=== PATIENT | male | born 1990 | race Caucasian/White ===

== ENCOUNTER 2019-07-06 15:36 | Emergency (ER) | payer MEDICARE, OTHER ==
[~2019-07-06] VITALS: Ht 188 cm; Wt 188.2 kg
[2019-07-06] MEDS ORDERED: VENTOLIN HFA18 GM INH (15:56)
[2019-07-06] MEDS ORDERED: OMEPRAZOLE20 MG PO (15:57)
[2019-07-06] MEDS ORDERED: NEURONTIN300 MG PO (15:57)
[2019-07-06] MEDS ORDERED: METOPROLOL SUCC25 MG PO (15:57)
[2019-07-06] MEDS ORDERED: BACTRIM DS TAB1 EACH PO (16:10)
--- OUTSIDE RECORDS SUMMARY | 2019-07-06 16:40 | XMS ---
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 - 2 Visits in 30 Days CARE PROVIDERS VANDANA MEJIA Physician Rn Baby Current PHONE: [phone] Donnie has no Care Guidelines for this patient. E.David VISIT COUNT (12 MO.) 2 Counts Include [facility] TOTAL 5 NOTE: Visits indicate total known visits. ED/UCC VISIT TRACKING (12 MO.) 07/06/2019 15:41 JANINE Kumar TYPE: Emergency COMPLAINT: - LT LEG WOUND CHECK UP 06/23/2019 18:51 [facility] [place] TYPE: Emergency DIAGNOSES: - Cellulitis of left lower limb - Phlebitis and thrombophlebitis of superficial vessels of left - POSS BLOOD CLOT 01/21/2019 17:43 [facility] TYPE: Emergency DIAGNOSES: - Nausea - Influenza due to other identified influenza virus with other - Bronchitis, not specified as acute or chronic - Tachycardia, unspecified - Diarrhea (Adult) - Fever (9 Weeks To 74 Years) - Cough - poss pneumonia - Emesis - Obesity, unspecified - Cough - Dyspnea, unspecified 12/23/2018 16:[facility] DIAGNOSES: - Sore Throat - Shortness of Breath - Acute bronchitis, unspecified - Cough - Fever (9 Weeks To 74 Years) - poss pneumonia 09/16/2018 13:33 [facility] [place] TYPE: Emergency DIAGNOSES: - Other chest pain - chest pain INPATIENT VISIT TRACKING (12 MO.) 01/21/2019 17:43 [facility] DIAGNOSES: - Bronchitis, not specified as acute or chronic - Cough - Influenza due to other identified influenza virus with other - Obesity, unspecified - Dyspnea, unspecified - Tachycardia, unspecified [email or web address]
== END 2019-07-06 16:17 | disposition home or self-care (01) ==
LOC: ED 15:36
DX: L03.116 Cellulitis of left lower limb (principal); Z79.899 Other long term (current) drug therapy
CPT/HCPCS: 99283

== ENCOUNTER 2019-10-20 21:11 | Emergency (ER) | payer MEDICARE, OTHER ==
[~2019-10-20] VITALS: Ht 188 cm; Wt 199.6 kg
--- OUTSIDE RECORDS SUMMARY | ~2019-10-20 | XMS | Encounter Summary ---
Demographics + + + | Address | [address] | | | [place] [address] | + + + | Home Phone | | + + + | Preferred Language | Unknown | + + + | Marital Status | Single | + + + | Anglican Affiliation | 1028 | + + + | Race | White | + + + | Ethnic Group | Not or | + + + Author + + + | Author | [facility] | | | and [place] | + + + | Organization | [facility] | | | and [place] | + + + | Address | Unknown | + + + | Phone | Unavailable | + + + Support + + +---------+ + | Name | Relationship | Address | Phone | + + +---------+ + | Audrey Zambrano | ECON | Unknown | | + + +---------+ + | nica Hicks | ECON | Unknown | | + + +---------+ + Care Team Providers + +------+ + | Care Conditioning Room Worker Name | Role | Phone | + +------+ + | No, Physician | PCP | Unavailable | + +------+ + Reason for Visit + + + | Reason | Comments | + + + | Nausea | | + + + | Emesis | | + + + | Diarrhea (Adult) | | + + + | Cough | | + + + | Fever (9 Weeks To 74 | | | Years) | | + + + Encounter Details +--------+ + + + + | Date | Type | Department | Care Team | Description | +--------+ + + + + | 01/21/ | Emergency | [facility] | Julian Melendez | Dyspnea, unspecified | | 2019 - | | [facility] | Javan Gamble MD | type (Primary Dx); | | | | [address] [place] | [address] | Cough; Influenza B; | | 01/23/ | | [place] [address] | [place], [place] | Tachycardia; | | 2019 | | [phone] | [id number] | Obesity, unspecified | | | | | | classification, | | | | | Darrick Robb MD | unspecified obesity | | | | | [address] | type, unspecified | | | | | [place] | whether serious | | | | | [id number] | comorbidity present; | | | | | | Bronchitis; Acute | | | | | | respiratory failure | | | | | | with hypoxia (HCC); | | | | | | Influenza B | +--------+ + + + + Social History + +-------+ +--------+------+ | Tobacco Use | Types | Packs/Day | Years | Date | | | | | Used | | + +-------+ +--------+------+ | Never Smoker | | | | | + +-------+ +--------+------+ + + +---------+ + | Alcohol Use | Drinks/Week | oz/Week | Comments | + + +---------+ + | Never | | | | + + +---------+ + + + + + | Alcohol Habits | Answer | Date Recorded | + + + + | How often do you have a drink containing | Never | 12/23/2018 | | alcohol? | | | + + + + | How many drinks containing alcohol do you | Not asked | | | have on a typical day when you are | | | | drinking? | | | + + + + | How often do you have six or more drinks on | Not asked | | | one occasion? | | | + + + + + + + | Sex Assigned at | Date Recorded | | | | + + + | Not on file | | + + + documented as of this encounter Last Filed Vital Signs + + + + + | Vital Sign | Reading | Time Taken | Comments | + + + + + | Blood Pressure | 143/90 | 01/23/2019 7:34 AM | | | | | PST | | + + + + + | Pulse | 97 | 01/23/2019 9:07 AM | | | | | PST | | + + + + + | Temperature | 37.4 C (99.3 F) | 01/23/2019 7:34 AM | | | | | PST | | + + + + + | Respiratory Rate | 18 | 01/23/2019 12:14 PM | | | | | PST | | + + + + + | Oxygen Saturation | 94% | 01/23/2019 9:07 AM | | | | | PST | | + + + + + | Inhaled Oxygen | - | - | | | Concentration | | | | + + + + + | Weight | 202.4 kg (446 lb 3.4 | 01/22/2019 1:17 AM | | | | oz) | PST | | + + + + + | Height | 190.5 cm (6' 3") | 01/22/2019 1:17 AM | | | | | PST | | + + + + + | Body Mass Index | 55.77 | 01/22/2019 1:17 AM | | | | | PST | | + + + + + documented in this encounter Discharge Summaries Newton Matute DO - 01/23/2019 2:42 PM PST [place], [place] HOSPITALIST DISCHARGE SUMMARY Pt. Name/Age/: Jean-Pierre Zambrano 28 y.o. 1990 Date of Admission: 01/21/2019 Date of Discharge: 01/23/2019 Admitting Physician: Darrick Robb MD Primary Care Provider: No Physician on file Discharging Physician: Newton Matute DO DISCHARGE DIAGNOSES: Active Hospital Problems Diagnosis Acute respiratory failure with hypoxia Bronchitis Influenza B Resolved Hospital Problems No resolved problems to display. DISCHARGE MEDICATIONS: Discharge Medications New Medications Details oseltamivir 75 mg capsule Take 1 capsule by mouth 2 times daily for 6 doses. Indications: Flu aka: TAMIFLU Unchanged Medications Details albuterol 90 mcg/puff inhaler Inhale 2 puffs into the lungs every 4 hours as needed for Wheezing or Shortness of Breath. Use with spacer device. gabapentin 300 mg capsule Take 300 mg by mouth Daily. aka: NEURONTIN metoprolol succinate 25 mg 24 hr tablet Take 25 mg by mouth Daily. aka: TOPROL-XL omeprazole 20 mg capsule Take 20 mg by mouth every morning (before breakfast). aka: priLOSEC tocopherol topical oil Apply 1 Application topically Daily as needed for Dry Skin. Discontinued Medications methylPREDNISolone 4 mg tablet aka: MEDROL DOSEPAK warfarin 5 mg tablet aka: COUMADIN HOSPITAL COURSE: Please refer to the H&P for full details and the most recent rounding rounding (progress) n ote. In short This is a28 y.o.malepast medical history significant for thromboembolic disease, hype rtensionwho presents withcough. Patient states he has had the symptoms for the last 3 weeks. He is admitted for influenza. He was started on tamiflu and supportive therapy. His s ymptoms gradually improved. He was weaned off oxygen quickly He is stable for discharge. In regards to his hx of DVTs. He have been on warfarin for more than a year. Mother is unclear of the trigger. She stated that they wanted him to be on warfarin for a couple of years than stopped. She does not remember him being diagnosed with a hypercoagulable disorder. His war farin was managed by their doctor in [place], but they have moved to [place]. No one is checkin g his INR. His INR is subtherapeutic. I discussed the risk of warfarin and the lack of INR m onitoring. The risk outweigh the benefit given their situation. Also given the unclear circu mstance of the DVT, I discussed the risk and benefit of continuing anticoagulation. Mother e xpressed understanding and agreeable to stopping anticoagulation. I advised her to get him a PCP and follow up on this as outpatient. Holding anticoagulation for now. Finish tamiflu as directed. Most recent weight: Input and output for last 24hrs: Wt Readings from Last 1 Encounters: 01/22/19 (!) 202.4 kg (446 lb 3.4 oz) I/O last 24 Hours: In: 1470 [P.O.:1470] Out: 1775 [Urine:1775] Vitals Ranges: Temp: [36.8 C (98.2 F)-37.8 C (100 F)] 37.4 C (99.3 F) Pulse: [95-104] 97 Resp: [18-24] 18 BP: (93-143)/(61-90) 143/90 Vitals: Temp: 37.4 C (99.3 F) BP: 143/90 Pulse: 97 Resp: 18 SpO2: 94 % SpO2 94 % on room air at flow rate 2L/min PHYSICAL EXAM: Patient seen and examined by me on discharge day GA: NAD, AAOX3, overweight Cardiac: heart rate is fast and rhythm is regular, no m/g/r, 2+ bilateral LE swelling Lung: decreased throughout, some wheezing, normal respiratory effort Abdomen: soft, nt/nd, nabs Ext:no c/c/e Pych: normal mood and affect Neuro: materials supervisor grossly intact, no focal weakness or sensory deficits PROCEDURES AND CONSULTS: Procedures none Consults none PENDING RESULTS: none DISPOSITION AND DISCHARGE INSTRUCTIONS: Follow-up Information [facility]. Go on 01/22/2019. Specialty: Physician Community Outreach Worker Why: New patient appointment @ 1:30 pm. Please check in at 1:15pm. Contact information: [address] [place] [id number] Condition: Patient being discharged with condition improved Diet: general Greater than 30 minutes were spent on discharge and coordination of post-hospital care. Electronically signed by: Newton Matute DO, 01/23/2019 2:42 PM [facility] Portions of this chart may have been created with P[employer] voice recognition software. Occasi onal wrong-word or sound-alike substitutions may have occurred due to the inherent penny itations of voice recognition software. Please read the chart carefully and recognize, using context, where these substitutions have occurred documented in this enco unter Discharge Instructions Instructions Newton Matute DO - 01/23/2019Please follow up your doctor regarding blood thi nning and see if he has a blood disorder that require him to be on life long blood thinners Hold warfarin for now Finish the Tamiflu Influenza (Adult) Influenza is also called the flu. It is a viral illness that affects the air passages of yo ur lungs. It is different from the common cold. The flu can easily be passed from one to per son to another. It may be spread through the air by coughing and sneezing. Or it can be spre ad by touching the sick person and then touching your own eyes, nose, or mouth. The flu starts 1 to 3 days after you are exposed to the flu virus. It may lastfor 1 to 2 weeks but many people feel tired or fatigued for many weeks afterward. You usually don t n eed to take antibiotics unless you have a complication. This might be an ear or sinus infect ion or pneumonia. Symptoms of the flu may be mild or severe. They can include extreme tiredness (wanting to s james in bed all day), chills, fevers, muscle aches, soreness with eye movement, headache, and a dry, hacking cough. Home care Follow these guidelines when caring for yourself at home: Avoid being around cigarette smoke, whether yours or other people s. Acetaminophen or ibuprofen will help ease your fever, muscle aches, and headache. Don t give aspirin to anyone younger than 18 who has the flu. Aspirin can harm the liver. Nausea and loss of appetite are common with the flu. Eat light meals. Drink 6 to 8 glass es of liquids every day. Good choices are water, sport drinks, soft drinks without caffeine, juices, tea, and soup. Extra fluids will also help loosen secretions in your nose and lungs . Jstd-jsk-hentzxs cold medicines will not make the flu go away faster. But the medicines may help with coughing, sore throat, and congestion in your nose and sinuses. Don t use a decongestant if you have high blood pressure. Stay home until your fever has been gone for at least 24 hours without using medicine to reduce fever. Follow-up care Follow up with your healthcare provider, or as advised, if you are not getting better over the next week. If you are age 65 or older, talk with your provider about getting a pneumococcal vaccine ev manjit 5 years. You should also get this vaccine if you have chronic asthma or COPD. All adults should get a flu vaccine every fall. Ask your provider about this. When to seek medical advice Call your healthcare provider right away if any of these occur: Cough with lots of colored mucus (sputum) or blood in your mucus Chest pain, shortness of breath, wheezing, or trouble breathing Severe headache, or face, neck, or ear pain New rashwith fever Fever of 100.4F (38C)or higher, or asdirected by your healthcare provider Confusion, behavior change, or seizure Severe weakness or dizziness You get a newfever or cough after getting better for a few days Date Last Reviewed: 03/04/201619994158-3510 [email or web address]. [address] [place] [address], [place] [address]. All righ ts reserved. This information is not intended as a substitute for professional medical care. Always follow your healthcare professional's instructions. documented in this encounter Medications at Time of Discharge + + + +---------+ + + | Medication | Sig | Dispensed | Refills | Start | End Date | | | | | | Date | | + + + +---------+ + + | albuterol 90 | Inhale 2 puffs into | 1 | 0 | 12/24/19 | | | mcg/puff inhaler | the lungs every 4 | Inhaler | | 19 | | | | hours as needed for | | | | | | | Wheezing or | | | | | | | Shortness of Breath. | | | | | | | Use with spacer | | | | | | | device. | | | | | + + + +---------+ + + | gabapentin | Take 300 mg by mouth | | 0 | | | | (NEURONTIN) 300 mg | Daily. | | | | | | capsule | | | | | | + + + +---------+ + + | metoprolol | Take 25 mg by mouth | | 0 | | | | succinate | Daily. | | | | | | (TOPROL-XL) 25 mg 24 | | | | | | | hr tablet | | | | | | + + + +---------+ + + | omeprazole | Take 20 mg by mouth | | 0 | | | | (PRILOSEC) 20 mg | every morning | | | | | | capsule | (before breakfast). | | | | | + + + +---------+ + + | tocopherol | Apply 1 Application | | 0 | | | | (VITAMIN E) topical | topically Daily as | | | | | | oil | needed for Dry Skin. | | | | | + + + +---------+ + + | oseltamivir | Take 1 capsule by | 6 | 0 | 01/24/20 | | | (TAMIFLU) 75 mg | mouth 2 times daily | capsule | | 19 | 9 | | capsuleIndications: | for 6 doses. | | | | | | Influenza | Indications: Flu | | | | | + + + +---------+ + + documented as of this encounter Progress Notes Jazmyne Betancourt, PharmD - 01/23/2019 7:47 AM PST WARFARIN PER PHARMACY PROTOCOL: Subjective/Objective: Jean-Pierre Zambrano is a 28 y.o. male admitted on 01/21/2019 for influenza and Bronchitis an d is receiving warfarin. Patient has a past medical history of DVT (deep venous thrombosis) (HCC). Goal INR: 2-3 []Initiation [x]chronic Home regimen: Warfarin 10mg po daily on Mondays and 7.5mg daily on all other days per ghulam nt Managed by: Nazario Monterroso in [place]?? Sensitizers:acutely ill Drug Interactions: OSELTAMIVIR; pantoprazole Recent Labs Lab 01/23/19 0533 01/22/19 0601 01/22/19 0515 01/21/19 1914 01/21/19 1834 CREA -- -- 1.01 -- 1.12 HGB -- -- 13.0* -- 13.8 HCT -- -- 42.2 -- 44.2 PLT -- -- 194 -- 226 INR 1.3* 1.1 -- 1.2* -- Date Hgb Hct Platelets INR Warfarin Dose 01/21 13.8 44.2 226 1.2 10 mg 01/22 13.0 42.2 194 1.1 10 mg 01/23 - - - 1.3 Assessment: The INR is below the target range of 2-3 for DVT and thromboembolic disease and history of DVT Pt reports NOT having 01/21 dose of Warfarin and not sure if he took 01/20 dose, but parker s remember taking 10mg dose on 01/19 He reports that he has not been able to go get his INR's checked in [place] d/t [place] ity to afford gas money Warfarin compliance is an issue Plan: 1. Warfarin 10mg po daily 2. Medication profile reviewed for potential drug-drug interactions 3. Labs in am: INR 4. Warfarin education received NO. 5. Pharmacist to follow daily Warfarin Dosing Nomogram Per P&T-approved Electronically signed by: Jazmyne Betancourt, PharmD 01/23/2019 7:47 AM Ellis Cazares, Ph armD - 01/22/2019 6:10 PM PST PHARMACY SERVICES: ADMISSION MEDICATION REVIEW Jean-Pierre Zambrano is a 28 y.o. male admitted on 01/21/2019. Patient is not a reliable historian. Location of Patient when reviewed: MEDICAL FLOOR Patient s prior to admit medication and over the counter (OTC) medications/herbal supplem ents list obtained from: X Verbal interview: Patient ABLE TO RECALL MOST name, strength, and directions X Doctor's office: Dr. Monterroso ([place]) Dr. Monzon ([facility]) X Pharmacy list names: [facility] X [employer] insurance reported information X Care Everywhere X Outside Information X Other sources: Attempted to contact patients Mother, Audrey. Vaccines up to date? 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 Patient DOES NOT have a MD following him and takes this how his mother feels fit. Medication added: Medication: Prior to Admission Sig: Vitamin E oil 1 application topically daily as needed for dry skin Recreational Substances, Tobacco & Alcohol use/frequency: X Recreational substances: Patient states his mother and uncle smoke marijuana and he is f requently exposed to the smoke. Other: Dr. Monterroso originally prescribed his warfarin. However, Dr. Monterroso is no longer following him. (Doctor in [place]) Dr. Monterroso's nurse states patient was impossible to reach because he didn't have a phone an d he would no show to appointment all the time due to not having gas. They would send him letters requesting for patient to contact the office and with instru ctions for dose adjustments. However, he would never follow up. He would randomly call/show up to the office wanting them to adjust his INR and give him "advice" without an appointment/labs. Last office visit was: Nov 2017 Last INR was drawn 04/26/18 when he randomly showed up. He never followed up for them to adjust his warfarin dosing. This all made it to where Dr. Monterroso is unable to manage his care. Patient states he has a "blood doctor" in [place], [place]. Unable to figure out who he is talking about. He does not know the doctors name. Patient states he was told by his "blood doctor" he could not go to any other doctors fo r his INR. Patient states he has not gotten his INR drawn because he does not have gas money to tra niki to the doctor. PCP is Kristen Monzon MD at [facility] She does NOT manage his warfarin. Patient gave [facility] PharmD his mothers phone number and requested we contact her for furthe r history. When [employer] attempted to contact his mother, Audrey, it went to the voicemail of gill carreno named Darby. When asked about this the patient states "she is a very bad person". Apparently someone his family knows. Patient states his memory is "screwed". Patient states he "occasionally" takes Hydrocodone-acetaminophen 5-325 mg tabs He told Med true[x] Media a long story about how he has a prescription for this. However, when his doctor drug tested him he didn't have any of this in his system which lead them to noe ch he was selling it. Therefore he was no longer given prescriptions for this. No fill history found at pharmacy nor in [place] drug monitoring [place] . 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 Provider albuterol 90 mcg/puff inhaler Inhale 2 puffs into the lungs every 4 hours as needed for Wh eezing or Shortness of Breath. Use with spacer device. Taking 1 Inhaler Gennaro Abdul MD gabapentin (NEURONTIN) 300 mg capsule Take 300 mg by mouth Daily. Taking Historical Susana jaquez MD methylPREDNISolone (MEDROL DOSEPAK) 4 mg tablet Follow package directions. Patient not aleta ing: Reported on 01/22/2019 Not Taking 21 tablet Gennaro Abdul MD metoprolol succinate (TOPROL-XL) 25 mg 24 hr tablet Take 25 mg by mouth Daily. Taking His torical Provider, omeprazole (PRILOSEC) 20 mg capsule Take 20 mg by mouth every morning (before breakfast). Taking Historical ProviderMD tocopherol (VITAMIN E) topical oil Apply 1 Application topically Daily as needed for Dry S kin. Taking Historical ProviderMD warfarin (COUMADIN) 5 mg tablet Take 5-10 mg by mouth Daily. or as directed Taking Histor ical MD Luis Medication review performed and electronically signed by Audrey Haynes, Technical Staff Engineer 01/22 5:23 PM Ellis Huang PharmD 01/22/2019 6:09 PM Jazmyne Cameron, Ph armD - 01/22/2019 8:52 AM PST WARFARIN PER PHARMACY PROTOCOL: Subjective/Objective: Jean-Pierre Zambrano is a 28 y.o. male admitted on 01/21/2019 for influenza and Bronchitis an d is receiving warfarin. Patient has a past medical history of DVT (deep venous thrombosis) (HCC). Goal INR: 2-3 []Initiation [x]chronic Home regimen: Warfarin 10mg po daily on Mondays and 7.5mg daily on all other days per patie nt Managed by: Nazario Monterroso in [place]?? Sensitizers:acutely ill Drug Interactions: OSELTAMIVIR; pantoprazole Recent Labs Lab 01/22/19 0601 01/22/19 0515 01/21/19 1914 01/21/19 1834 CREA -- 1.01 -- 1.12 HGB -- 13.0* -- 13.8 HCT -- 42.2 -- 44.2 PLT -- 194 -- 226 INR 1.1 -- 1.2* -- Date Hgb Hct Platelets INR Warfarin Dose 01/21 13.8 44.2 226 1.2 10 mg 01/22 13.0 42.2 194 1.1 10 mg Assessment: The INR is below the target range of 2-3 for DVT and thromboembolic disease and history of DVT Pt reports NOT having 01/21 dose of Warfarin and not sure if he took 01/20 dose, but parker s remember taking 10mg dose on 01/19 He reports that he has not been able to go get his INR's checked in [place] d/t in[place] ity to afford gas money Warfarin compliance is an issue Plan: 1. Warfarin 10mg po x 1 dose 2. AM clinical pharmacist to assess AM labs and order maintenance dosing 3. Medication profile reviewed for potential drug-drug interactions 4. Labs in am: INR 5. Warfarin education received NO. 6. Pharmacist to follow daily Warfarin Dosing Nomogram Per P&T-approved Electronically signed by: Jazmyne Betancourt PharmD 01/22/2019 8:52 AM Newton Thrasher DO - 01/22/2019 7:28 AM PST [facility] [place] HOSPITALIST PROGRESS NOTE Patient: Jean-Pierre Zambrano : 1990: Age: 28 y.o. MedRec: [id number] Admission date: 01/21/2019 Hospital day # : 1 Physician author: Newton Matute DO Today: 01/22/2019 Subjective CC Breathing is improve. SOB is associated with chill, cough and some wheezing. Body aches all over but worst when he cough. He denied chest pain. ROS See above Overnight Event: none Assessment and Hospital Course Active Hospital Problems Diagnosis Bronchitis Influenza B Resolved Hospital Problems No resolved problems to display. This is a 28 y.o. male past medical history significant for thromboembolic disease, hyperte nsion who presents with cough. Patient states he has had the symptoms for the last 3 weeks. He is admitted for influenza. Plan # Acute respiratory failure with hypoxia due to influenza B Stable. + Influenza B. - cont Tamiflu - stop IV fluids. # Thromboembolic disease INR below goal - continue Coumadin. - warfarin per pharm - heparin for DVT ppx for now # Hypertension essential chronic BP soft on presentation. BP improving. - cont hold Lopressor # Obesity with BMi 55 - noted - diet DVT ppx: Warfarin, but not therapeutic at this time. Heparin for now Dispo: home in 1-2 days Allergies: No Known Allergies Current Medications: Current Facility-Administered Medications Medication Dose Route Frequency Provider Last Rate Last Dose acetaminophen (TYLENOL) tablet 650 mg 650 mg Oral Q4H PRN Darrick Robb MD albuterol 2.5 mg/3 mL nebulizer solution 2.5 mg 2.5 mg Nebulization RT Q4H PRN Darrick Robb MD benzonatate (TESSALON) capsule 200 mg 200 mg Oral TID PRN Darrick Robb MD 200 mg a t 01/22/19 0628 gabapentin (NEURONTIN) capsule 300 mg 300 mg Oral Nightly Darrick Robb MD guaiFENesin (ROBITUSSIN) 100 mg/5 mL liquid 200 mg 200 mg Oral Q4H PRN Darrick Robb MD 200 mg at 01/22/19 0444 ondansetron (ZOFRAN) injection 4 mg 4 mg Intravenous Q6H PRN Darrick Robb MD oseltamivir (TAMIFLU) capsule 75 mg 75 mg Oral BID Darrick Robb MD 75 mg at 2305 pantoprazole (PROTONIX) DR tablet 40 mg 40 mg Oral QAM AC Darrick Robb MD 40 mg at 01/22/19 0622 sodium chloride 0.9% (NS) bolus 1,000 mL 1,000 mL Intravenous Once Julian Melendez MD 1,000 mL/hr at 01/21/19 2144 warfarin per pharmacy Other Pharmacy Consult Darrick Robb MD Current Infusions: Objective Data Point of care glucose No results for input(s): POCGLU in the last 168 hours. Labs last 24 hours Recent Results (from the past 24 hour(s)) Influenza A and B RNA, NAAT Collection Time: 01/21/19 6:08 PM Result Value Ref Range Influenza A PCR Negative Negative, Test not performed Influenza B PCR Positive (A) Negative, Test not performed CBC with Differential Collection Time: 01/21/19 6:34 PM Result Value Ref Range WBC 10.1 4.0 - 11.0 K/uL RBC 5.55 4.30 - 5.70 M/uL Hemoglobin 13.8 13.5 - 18.0 g/dL Hematocrit 44.2 40.0 - 51.0 % MCV 79.6 (L) 83.0 - 101.0 fL MCH 24.9 (L) 28.0 - 35.0 pg MCHC 31.2 (L) 32.0 - 36.0 g/dL RDW-CV 15.9 (H) <15.0 % RDW-SD 45.4 35.1 - 46.3 fL Platelet Count 226 140 - 440 K/uL MPV 9.3 6.5 - 12.4 fL % Neutrophils 74.3 45.0 - 82.0 % % Lymphocytes 0.5 (L) 20.0 - 45.0 % % Monocytes 23.0 (H) 4.0 - 12.0 % % Eosinophils 1.3 0.0 - 5.0 % % Basophils 0.4 0.0 - 1.0 % % Immature Granulocytes 0.5 (H) 0.0 - 0.4 % Absolute Neutrophils 7.51 1.80 - 8.50 K/uL Absolute Lymphocytes 0.05 (L) 0.60 - 3.20 K/uL Absolute Monocytes 2.33 (H) 0.00 - 1.00 K/uL Absolute Eosinophils 0.13 0.00 - 0.40 K/uL Absolute Basophils 0.04 0.00 - 0.10 K/uL Absolute Immature Granulocytes 0.05 (H) 0.00 - 0.03 K/uL % nRBC 0 0 - 2 per 100 WBCs Absolute nRBC 0.00 0.00 - 0.01 K/uL Comprehensive Metabolic Panel Collection Time: 01/21/19 6:34 PM Result Value Ref Range Na 134 (L) 136 - 145 mmol/L K 3.9 3.4 - 5.1 mmol/L Cl 99 98 - 107 mmol/L CO2 27 20 - 31 mmol/L Anion Gap 8 3 - 16 mmol/L Glucose 108 (H) 60 - 106 mg/dL BUN 11 9 - 23 mg/dL Creatinine 1.12 0.70 - 1.30 mg/dL eGFR if not >60 >=60 mL/min/1.73m2 Calcium 9.5 8.7 - 10.4 mg/dL Albumin 4.6 3.2 - 4.8 g/dL Bilirubin Total 0.9 0.3 - 1.2 mg/dL Total Protein 7.7 5.7 - 8.2 g/dL AST 54 (H) 0 - 34 U/L ALT 55 (H) 10 - 49 U/L Alkaline Phosphatase 70 46 - 116 U/L Globulin 3.1 2.1 - 3.8 g/dL Albumin/Globulin Ratio 1.5 0.8 - 1.9 BUN/Creatinine Ratio 9.8 Lipase Collection Time: 01/21/19 6:34 PM Result Value Ref Range Lipase 29 12 - 53 U/L Troponin I Collection Time: 01/21/19 6:34 PM Result Value Ref Range Troponin I 0.03 <0.06 ng/mL Lactic Acid Collection Time: 01/21/19 6:34 PM Result Value Ref Range Lactate 1.2 0.5 - 2.2 mmol/L Procalcitonin Collection Time: 01/21/19 6:34 PM Result Value Ref Range Procalcitonin 0.25 <=0.50 ng/mL Comment TSH Collection Time: 01/21/19 6:34 PM Result Value Ref Range TSH 0.80 0.55 - 4.78 uIU/mL B Type Natriuretic Peptide Collection Time: 01/21/19 6:34 PM Result Value Ref Range BNP 8 <100 pg/mL Protime INR Collection Time: 01/21/19 7:14 PM Result Value Ref Range Prothrombin Time 14.7 (H) 11.3 - 13.9 seconds INR 1.2 (H) 0.9 - 1.1 ECG 12 lead Collection Time: 01/21/19 8:08 PM Result Value Ref Range VENTRICULAR RATE EKG 114 BPM ATRIAL RATE 114 BPM P-R INTERVAL 172 ms QRS DURATION 80 ms Q-T INTERVAL 310 ms Q-T INTERVAL (CORRECTED) 427 ms P WAVE AXIS 40 degrees QRS AXIS 47 degrees T AXIS 56 degrees INTERPRETATION TEXT Sinus tachycardia Low voltage QRS Cannot rule out Inferior infarct , age undetermined Abnormal ECG No previous ECGs available Confirmed by KHADRA ALICIA MD ([id number]) on 01/22/2019 6:44:36 AM Basic Metabolic Panel Collection Time: 01/22/19 5:15 AM Result Value Ref Range Na 137 136 - 145 mmol/L K 3.8 3.4 - 5.1 mmol/L Cl 101 98 - 107 mmol/L CO2 29 20 - 31 mmol/L Anion Gap 7 3 - 16 mmol/L Glucose 110 (H) 60 - 106 mg/dL BUN 12 9 - 23 mg/dL Creatinine 1.01 0.70 - 1.30 mg/dL eGFR if not >60 >=60 mL/min/1.73m2 Calcium 9.1 8.7 - 10.4 mg/dL BUN/Creatinine Ratio 11.9 CBC no Differential Collection Time: 01/22/19 5:15 AM Result Value Ref Range WBC 7.7 4.0 - 11.0 K/uL RBC 5.19 4.30 - 5.70 M/uL Hemoglobin 13.0 (L) 13.5 - 18.0 g/dL Hematocrit 42.2 40.0 - 51.0 % MCV 81.3 (L) 83.0 - 101.0 fL MCH 25.0 (L) 28.0 - 35.0 pg MCHC 30.8 (L) 32.0 - 36.0 g/dL RDW-CV 16.1 (H) <15.0 % RDW-SD 48.3 (H) 35.1 - 46.3 fL Platelet Count 194 140 - 440 K/uL MPV 9.2 6.5 - 12.4 fL % nRBC 0 0 - 2 per 100 WBCs Absolute nRBC 0.00 0.00 - 0.01 K/uL Protime INR Collection Time: 01/22/19 6:01 AM Result Value Ref Range Prothrombin Time 14.6 (H) 11.3 - 13.9 seconds INR 1.1 0.9 - 1.1 Micro results Microbiology Results (72 hrs) Procedure Component Value Units Date/Time Influenza A and B RNA, NAAT [[id number]] (Abnormal) Collected: 01/21/19 7698 Order Status: Completed Lab Status: Final result Updated: 01/21/19 3820 Specimen: Tissue from Nares, Right Influenza A PCR Negative Influenza B PCR Positive Radiology results Xr Chest Ap Portable Result Date: 01/21/2019 XR CHEST AP PORTABLE 01/21/2019 6:55 PM HISTORY: NAUSEA EMESIS DIARRHEA (ADULT) COUGH FEVER (9 WEEKS TO 74 YEARS). COMPARISON: 12/23/2018 Findings: Hypoexpanded lungs with minimal bro nchovascular crowding. No evidence of pneumothorax, pleural effusion, or focal consolidation . Heart size is within normal limits. Pulmonary vasculature is within normal limits. Aorta i s normal. Mediastinum is unremarkable. No acute osseous or soft tissue abnormality identifie d. Hypoexpanded lungs with minimal bronchovascular crowding. No evidence of pneumothorax, pleu ral effusion, or focal consolidation. Dictated and Signed by: MD Jose Blum lly signed: 01/21/2019 8:[address] Angiogram Pulmonary W Contrast Result Date: 01/21/2019 CT ANGIOGRAM PULMONARY CLINICAL INFORMATION: Dyspnea, chest pain, and fever. COMPARISON: XR CHEST AP PORTABLE (01/21/2019); XR CHEST 2 VIEWS (12/23/2018); CT Angio Chest for PE (2015); PROCEDURE: Thin-section images of the entire chest after the administration of 70 ml Omnipaque 350 intravenous contrast. 3D MIP thin slab images and 2D multiplanar reconstructio ns performed. At least one of the following CT dose optimization techniques were used: Autom ated exposure control; Adjustment of mA and/or kV according to patient size; Use of iterativ e reconstruction technique. FINDINGS: See below. Report sent:01/21/2019 11:37:59 PM Preliminary report: Study of adequate diagnostic quality. Study negative for pulmonary emb olism or other acute process in the chest. Signed by: Jose Mojica Robin Sign Date/Time: 11:37 PM Vitals Ranges: Temp: [36.5 C (97.7 F)-40.3 C (104.6 F)] 36.5 C (97.7 F) Pulse: [97-140] 104 Resp: [15-30] 22 BP: (97-170)/(60-79) 126/71 Vitals: Temp: 36.5 C (97.7 F) BP: 126/71 Pulse: 104 Resp: 22 SpO2: 90 % SpO2 90 % on nasal cannula at flow rate 2L/min Exam GA: NAD, AAOX3, overweight HEENT: EOMI, MMM Neck: no JVD, no LDN Cardiac: heart rate is fast and rhythm is regular, no m/g/r, 2+ bilateral LE swelling Lung: decreased throughout, some wheezing, normal respiratory effort Abdomen: soft, nt/nd, nabs Ext:no c/c/e Pych: normal mood and affect 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 Portions of this chart may have been created with Pusher voice recognition software. Occasi onal wrong-word or sound-alike substitutions may have occurred due to the inherent penny itations of voice recognition software. Please read the chart carefully and recognize, using context, where these substitutions have occurred Charissa Lay Pha rmD - 01/22/2019 12:01 AM PST WARFARIN PER PHARMACY PROTOCOL: Subjective/Objective: Jean-Pierre Zambrano is a 28 y.o. male admitted on 01/21/2019 for influenza and Bronchitis an d is receiving warfarin. Patient has a past medical history of DVT (deep venous thrombosis) (HCC). Goal INR: 2-3 []Initiation [x]chronic Home regimen: Warfarin 10mg po daily on Mondays and 7.5mg daily on all other days per patie nt Managed by: Nazario Monterroso in [place]?? Sensitizers:acutely ill Drug Interactions: OSELTAMIVIR; pantoprazole Recent Labs Lab 01/21/19 1914 01/21/19 1834 CREA -- 1.12 HGB -- 13.8 HCT -- 44.2 PLT -- 226 INR 1.2* -- Date Hgb Hct Platelets INR Warfarin Dose 01/22 13.8 44.2 226 1.2 10 mg Assessment: The INR is below the target range of 2-3 for DVT and thromboembolic disease and history of DVT Pt reports NOT having 11/20 dose of Warfarin and not sure if he took 01/20 dose, but parker s remember taking 10mg dose on 01/19 He reports that he has not been able to go get his INR's checked in [place] d/t [facility] it[facility] to afford gas money Plan: 1. Warfarin 10mg po x 1 dose in ED 2. AM clinical pharmacist to assess AM labs and order maintenance dosing 3. Medication profile reviewed for potential drug-drug interactions 4. Labs in am: Hgb, Hct, INR 5. Warfarin education received NO. 6. Pharmacist to follow daily Warfarin Dosing Nomogram Per P&T-approved Electronically signed by: Charissa Sterling PharmD 01/22/2019 12:01 AM documented in this encounter H&P Notes Darrick Robb MD - 01/21/2019 11:59 PM PST [facility] HISTORY AND PHYSICAL Pt. Name/Age/: Jean-Pierre Zambrano 28 y.o. 1990 Date of admission: 01/21/2019 Admitting Physician: Darrick Robb MD Primary Care Provider: No Physician on file CHIEF COMPLAINT: Cough HISTORY OF PRESENT ILLNESS: This is a 28 y.o. male past medical history significant for thromboembolic disease, hyperte nsion who presents with cough. Patient states he has had the symptoms for the last 3 weeks. We initially had the symptoms he saw his primary care doctor and he was given a Z-Gerardo for bronchitis. Patient states the cough never improved. He notes muscle aches, runny nose, so re throat. Patient has not had any sick contacts. Patient states that he does not get his INR checked. He takes the same dose of Coumadin daily. He notes that he has had increased swelling in his left lower extremity. PAST MEDICAL and SURGICAL HISTORY: Past Medical History: Diagnosis Date DVT (deep venous thrombosis) (HCC) History reviewed. No pertinent surgical history. FAMILY HISTORY: Parents are alive and healthy SOCIAL HISTORY: reports that he has never smoked. He does not have any smokeless tobacco history on file. He reports that he does not drink alcohol or use drugs. 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 Use with spacer device. gabapentin (NEURONTIN) 300 mg capsule Take 300 mg by mouth 3 times daily. methylPREDNISolone (MEDROL DOSEPAK) 4 mg tablet Follow package directions. metoprolol tartrate (LOPRESSOR) 25 mg tablet Take 25 mg by mouth 2 times daily. omeprazole (PRILOSEC) 20 mg capsule Take 20 mg by mouth every morning (before breakfast ). warfarin (COUMADIN) 7.5 mg tablet Take 7.5 mg by mouth Daily. ALLERGIES: No Known Allergies VITAL SIGNS: Temp: (!) 40.3 C (104.6 F), Pulse: 104, Resp: 30, BP: 97/77, SpO2 (!) 85 % on nasal can nula at flow rate 2L/min Temp Min: 40.3 C (104.6 F) Max: 40.3 C (104.6 F) Weight: (!) 201 kg (443 lb 2 oz) PHYSICAL EXAMINATION: Gen Cheo - alert, cooperative and no distress Head - Normocephalic, without obvious abnormality, atraumatic Eyes - PERRL, conjunctiva/corneas clear, EOM's intact both eyes ENT - mucous membranes moist Neck - supple Lungs -air movement bilaterally,+ rhonchi Heart - normal rate, rhythm w/o m/r/g Abdomen - obese Normoactive bowel sounds, non-tender non-distended Extremities - LLE > RLE Nontender, , no clubbing or cyanosis Skin - dry skin Neurologic - Alert and oriented x 3. CN II-XII intact. strength- 5/5 throughout Ref lexes 2+ bilateral biceps, triceps, & patellar DIAGNOSTIC STUDIES: Available data and images were reviewed personally. Significant results and findings are a ddressed here or in the Assessment and Plan. Lab Results Component Value Date HGB 13.8 01/21/2019 HCT 44.2 01/21/2019 PLT 226 01/21/2019 WBC 10.1 01/21/2019 Lab Results Component Value Date NA 134 (L) 01/21/2019 K 3.9 01/21/2019 CL 99 01/21/2019 CO2 27 01/21/2019 CREA 1.12 01/21/2019 BUN 11 01/21/2019 BNP 8 01/21/2019 No results found for: POCGLU Xr Chest Ap Portable Result Date: 01/21/2019 XR CHEST AP PORTABLE 01/21/2019 6:55 PM HISTORY: NAUSEA EMESIS DIARRHEA (ADULT) COUGH FEVER (9 WEEKS TO 74 YEARS). COMPARISON: 12/23/2018 Findings: Hypoexpanded lungs with minimal bro nchovascular crowding. No evidence of pneumothorax, pleural effusion, or focal consolidation . Heart size is within normal limits. Pulmonary vasculature is within normal limits. Aorta i s normal. Mediastinum is unremarkable. No acute osseous or soft tissue abnormality identifie d. Hypoexpanded lungs with minimal bronchovascular crowding. No evidence of pneumothorax, pleu ral effusion, or focal consolidation. Dictated and Signed by: MD Vane Blum signed: 01/21/2019 8:[address] Angiogram Pulmonary W Contrast Result Date: 01/21/2019 CT ANGIOGRAM PULMONARY CLINICAL INFORMATION: Dyspnea, chest pain, and fever. COMPARISON: XR CHEST AP PORTABLE (01/21/2019); XR CHEST 2 VIEWS (12/23/2018); CT Angio Chest for PE (2015); PROCEDURE: Thin-section images of the entire chest after the administration of 70 ml Omnipaque 350 intravenous contrast. 3D MIP thin slab images and 2D multiplanar reconstructio ns performed. At least one of the following CT dose optimization techniques were used: Autom ated exposure control; Adjustment of mA and/or kV according to patient size; Use of iterativ e reconstruction technique. FINDINGS: See below. Report sent:01/21/2019 11:37:59 PM Preliminary report: Study of adequate diagnostic quality. Study negative for pulmonary emb olism or other acute process in the chest. Signed by: Jose Mojica Robin Sign Date/Time: 11:37 PM EKG: Reviewed independently by me. The tracing shows sinus tachycardia ASSESSMENT and PLAN: Active Hospital Problems Diagnosis Bronchitis Influenza B Resolved Hospital Problems No resolved problems to display. Sepsis: Source bronchitis: Influenza B. Patient started on Tamiflu. IV fluids. Thromboembolic disease: INR below goal. Will continue Coumadin. Patient has asymmetrical lower extremities. Patient could have new DVT. His INR is below goal. We will continue Co umadin Hypertension essential chronic we will hold Lopressor IV fluids. Check electrolytes in a.m. Will give patient cardiac diet DVT Prophylaxis Patient is on Coumadin Code Status Full code CMS Documentation Total of minutes were required to complete the admission process. Electronically signed by: Darrick Robb MD 01/21/2019 11:59 PM [facility] documented in this enc ounter ED Notes Julian Melendez MD - 01/21/2019 9:53 PM PSTFormatting of this note might be d ifferent from the original. [facility] Jean-Pierre Zambrano Emergency Department Encounter Note [address] [place] [id number] PCP:No Physician on file [id number] eMERGENCY dEPARTMENT eNCOUnter CHIEF COMPLAINT Chief Complaint Patient presents with Nausea Emesis Diarrhea (Adult) Cough Fever (9 Weeks To 74 Years) TRIAGE ED Triage Notes, ED Triage Notes Amie Spaulding RN 01/21/2019 17:53 Patient arrives with c/o continued cough, sob, and weakness since being diagnosed with Bro nchitis 3 weeks ago. Finished antibiotic course. Has had abdominal pain, n/v, and diarrhea a nd fever x 1.5 weeks. HPI Jean-Pierre Zambrano is a 28 y.o. male who presents with a high fever some cough and shortnes s of breath and weakness. He was diagnosis with bronchitis approximately 3 weeks ago he fin ished his course of antibiotics. Patient diagnosed with high fever cough and some shortness of breath. Patient has had feve r for the last few days he has a high fever tonight. He was recently treated for bronchitis . He is here for further evaluation. Patient appears to be very weak he is tachycardic Patient has morbid obesity. PAST MEDICAL HISTORY Past Medical History: Diagnosis Date DVT (deep venous thrombosis) (HCC) SURGICAL HISTORY History reviewed. No pertinent surgical history. 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 Use with spacer device. gabapentin (NEURONTIN) 300 mg capsule Take 300 mg by mouth 3 times daily. methylPREDNISolone (MEDROL DOSEPAK) 4 mg tablet Follow package directions. metoprolol tartrate (LOPRESSOR) 25 mg tablet Take 25 mg by mouth 2 times daily. omeprazole (PRILOSEC) 20 mg capsule Take 20 mg by mouth every morning (before breakfast ). warfarin (COUMADIN) 7.5 mg tablet Take 7.5 mg by mouth Daily. ALLERGIES No Known Allergies FAMILY HISTORY History reviewed. No pertinent family history. SOCIAL HISTORY Social History Socioeconomic History Marital status: Single Spouse name: Not on file Number of children: Not on file Years of education: Not on file Highest education level: Not on file Tobacco Use Smoking status: Never Smoker Substance and Sexual Activity Alcohol use: Never Frequency: Never Drug use: Never REVIEW OF SYSTEMS Please see HPI, All systems negative except as marked. Twelve point review of system comp leted my me. PHYSICAL EXAM VITAL SIGNS: Temp: (!) 40.3 C (104.6 F) Pulse: 130 Resp: 28 SpO2: 92 % BP: 170/65 Constitutional: Well developed, Well nourished, Non-toxic appearance. HENT: Normocephalic, Atraumatic, Bilateral external ears normal, Oropharynx moist, No oral exudates, Nose normal. Neck- Normal range of motion, No tenderness, Supple, No stridor. Eyes: PERRL, EOMI, Conjunctiva normal, No discharge. Respiratory: increased rhonchi bilaterally, no chest tenderness. Cardiovascular: Normal heart rate, Normal rhythm, No murmurs, No rubs, No gallops. GI: Bowel sounds normal, Soft, No tenderness, No masses, No pulsatile masses. Musculoskeletal: Intact distal pulses, No edema, No tenderness, No cyanosis, No clubbing. Good range of motion in all major joints. No tenderness to palpation or major deformities no jim. Neurologic: Alert & oriented x 3, Normal motor function, Normal sensory function, No focal deficits noted, no facial assymetry noted. Equal abalone fisherman in all extremities EKG Interpretation Interpreted by emergency department physician Rhythm: normal sinus Rate: 114 [place]: normal Ectopy: none Conduction: P wave normal, normal QRS ST Segments: normal no elevation, depression, or prolongation. T Waves: no acute change Q Waves: none RADIOLOGY Xr Chest Ap Portable Result Date: 01/21/2019 XR CHEST AP PORTABLE 01/21/2019 6:55 PM HISTORY: NAUSEA EMESIS DIARRHEA (ADULT) COUGH FEVER (9 WEEKS TO 76 YEARS). COMPARISON: 12/23/2018 Findings: Hypoexpanded lungs with minimal bro nchovascular crowding. No evidence of pneumothorax, pleural effusion, or focal consolidation . Heart size is within normal limits. Pulmonary vasculature is within normal limits. Aorta i s normal. Mediastinum is unremarkable. No acute osseous or soft tissue abnormality identifie d. Hypoexpanded lungs with minimal bronchovascular crowding. No evidence of pneumothorax, pleu ral effusion, or focal consolidation. Dictated and Signed by: MD Jose Bluma sonya signed: 01/21/2019 8:36 PM LAB Labs Reviewed INFLUENZA A AND B RNA, NAAT - Abnormal; Notable for the following components: Result Value Influenza B PCR Positive (*) All other components within normal limits CBC WITH DIFFERENTIAL - Abnormal; Notable for the following components: MCV 79.6 (*) MCH 24.9 (*) MCHC 31.2 (*) RDW-CV 15.9 (*) % Lymphocytes 0.5 (*) % Monocytes 23.0 (*) % Immature Granulocytes 0.5 (*) Absolute Lymphocytes 0.05 (*) Absolute Monocytes 2.33 (*) Absolute Immature Granulocytes 0.05 (*) All other components within normal limits COMPREHENSIVE METABOLIC PANEL - Abnormal; Notable for the following components: Na 134 (*) Glucose 108 (*) AST 54 (*) ALT 55 (*) All other components within normal limits PROTIME INR - Abnormal; Notable for the following components: Prothrombin Time 14.7 (*) INR 1.2 (*) All other components within normal limits LIPASE - Normal TROPONIN I - Normal LACTIC ACID - Normal TSH - Normal B TYPE NATRIURETIC PEPTIDE - Normal PROCALCITONIN ED COURSE & MEDICAL DECISION MAKING Pertinent Labs & Imaging studies reviewed. (See chart for details) Nursing notes reviewed. Patient with acute dizziness weakness and high fever. He is also having a cough and some r espiratory difficulty. He recently had bronchitis. He is showing markers for influenza B. He has had symptoms that have come on over the last few weeks but has gotten acutely ill ov er the last 24 hours. At this point patient is too ill to stand and walk. Becomes tachycar dic and dizziness with standing and walking we have given him IV fluids but his symptoms do not improve. This point plan is to admit the patient to hospitalist service for further hyd ration and aspiratory treatments and supportive care. At this point patient is in guarded c ondition. FINAL IMPRESSION 1. Dyspnea, unspecified type Acute 2. Cough Acute 3. Influenza B Acute 4. Tachycardia 5. Obesity, unspecified classification, unspecified obesity type, unspecified whether calos us comorbidity present Chronic Portions of this chart may have been created with Pusher voice recognition software. Occasi onal wrong-word or sound-alike substitutions may have occurred due to the inherent penny itations of voice recognition software. Please read the chart carefully and recognize, using context, where these substitutions have occurred Julian Melendez MD 01/21/192201 Michaela Caballero CNA - 01/21/2019 9:[address] and only was able to tolerate a s hort distance ( was able to tolerate walking from room 10 to room 12). Patient also complain ed of feeling dizzy. Patient maintained a O2 level above 90% and a heart rate around 110-[address] notified. Madonna Dunlap RN - 01/21/2019 8:15 PM PSTpt developed cough and chest pain, awaiting chest xray results. will start if no CHF noted. discussed with med student. Electronically sign ed by Madonna Gross RN at 01/21/2019 8:15 PM Madonna Garcia RN - 01/21/2019 8:1 2 PM PSTPatient continues to have headache, photophobic. Lights dimmed. Also c/o chest josep n. States he feels "swollen" EKG done and pt is still diaphoretic. 1st bag IVF completed. Holding second until chest xray results due to shortness of breath. Patient is now coughi ng fairly consistently. P M Madonna Garcia RN - 01/21/2019 7:39 PM PSTPatient extremely diaphoretic. C/o of s evere headache. States minimal pain in abdomen at this time. Given cold compress. Re kimberly avila. Pain 10/11. Call light within reach.Electronically signed by Madonna Gross RN at 7:40 PM Amie Deluna RN - 01/21/2019 5:51 PM PSTPatient arrives with c/o continued cough, sob, and weakness since being diagnosed with Bronchitis 3 weeks ago. Finis hed antibiotic course. Has had abdominal pain, n/v, and diarrhea and fever x 1.5 weeks. Elec tronically signed by Amie Spaulding RN at 01/21/2019 5:53 PM PSTdocumented in this encou nter Miscellaneous Notes Plan of Care - Miguel A Hinojosa RN - 01/23/2019 5:56 PM PSTDischarged to home lan of Care - Susan Pina RN - 01/23/2019 4:49 AM PSTBryon is A&O times 4, remains free from falls, vital sign remain s table except heart rate 90-104's. He c/o sore throat due to cough, robitussin and tessalon g iven. He states, "pass out from coughing fit". VS stable MD. Cool wash applied to forehead. Continent to monitor. Tylenol given for head ache. He is up SBA with cane Electronically si gned by Susan Pina RN at 01/23/2019 5:06 AM PSTPlan of Care - Alejandra Mcclain RRT - 01/22/2019 5:48 PM PST Breath sounds diminished. He tolerates nebulizer treatment well and has a harsh bronchospa stic cough. SpO2: 92 % on room air, heart rate 104 respiratory rate 24-28. Per respiratory score increased nebulizer treatments from as needed to every 6 hours. Severity Score 10 Class 3 Severity Score 0-4 ITEM 0 1 2 3 4 1 Respiratory History No Smoking history Current tobacco use Up to 10 Pack year history. Simple home regimen Known Pulmonary Disease 20 pack year history Complex Home regimen 30+ pack year history Severe Pulmonary Disease or exacerbation 0 Surgery Status (current admission) No surgery Minor surgery Lower abdominal rib fractures Thoracic or uppe r abdominal Thoracic with pulmonary disease or Central Nervous System 2 Chest X-RAY Clear or Normal baseline Unavailable Improving/clearing Abnormal, Unilateral or mild Infiltrates or atelectasis, Chronic changes Infiltrates mild bilateral or unilateral or pleural effusions extensive Inf iltrates, atelectasis or pleural effusions, pneumothorax 2 Respiratory Pattern Regular pattern Respiratory Rate:8-20 Increased Respiratory Rate, labored Dyspnea on exertion, irregular pattern Use of accessory muscles, prolonged expirato ry phase nasal flaring Severe Dyspnea , Purse Lip Breathing, Use of accessory muscles 2 Breath Sounds Clear Diminished unilaterally Diminished bilaterally &/or crackles Wheezing or Rhonchi &/or absent unilateral Absent bilaterally 0 Cough Strong, non productive Moderate, loose, productive Weak, non-productive Weak, ineffective Non-spontaneous or may require suctioning 2 Sputum None Scant / Thin White/clear Moderate Beige/ yellow Large / Thick Dark Green/Brown Copious / Plugs Hemoptysis bre 0 LOC Alert, oriented, cooperative Disoriented, follows commands Obtunded, arousable, follo ws commands Obtunded, uncooperative, sedated Comatose 1 Oxygen Demand Room air Baseline 1-2 liters 3-6 liters >7 Liters Oxymizer to > 55% 60% or greater Total Severity Score (SS) Class 0-3 PRN 1 4-7 TID or PRN 2 8-11 QID 3 12-14 Q4 W/A 4 15+ Q4 5 lan of [facility] - JamesJenelle garza R - 01/22/2019 12:03 PM PSTDischarge Planning: This Asst spoke with Jean-Pierre at his bedside regarding discharge plans. Jean-Pierre reports he lives in a home in [place] with his mother, brother and landlord. He report s they stay in a one bedroom, one story home with a basement. The landlord is special needs and he has the bedroom. The family room takes up most of the home and that where he, his mot her and brother sleep. His bathroom has a tub shower with a shower chair and grab bars but n o sink. Jean-Pierre reports their hot water heater has been broken for 5 months. He states his mother is trying to help his landlord and [employer] in [place] get it fixed. Jean-Pierre is mostly independent in his ADL's. He reports he needs help with food prep and putti ng on his socks. Jean-Pierre uses a cane, 2WW, bedside commode and a urinal. Jean-Pierre does not have a PCP.An new patient appointment was scheduled with Loida Galdamez on 1 04/09/2018 @ 1330. He uses [facility] in [place]. Jean-Pierre reports his mom will transport him home when stable for discharge. Dispo: Home with family, no unmet needs identified. Electronically signed by: Jenelle Forrest 01/22/2019 12:23 PM lan of Care - Marco Antonio Cid Chaplain - 01/22/2019 11:27 AM PST Spiritual Care Jean-Pierre Zambrano is a 28 y.o. male who is admitted for Cough [R05] Tachycardia [R00.0] Bronchitis [J40] Influenza B [J10.1] Dyspnea, unspecified type [R06.00] Obesity, unspecified classification, unspecified obesity type, unspecified whether serious comorbidity present [E66.9]. Hotel [facility]id visit is in response to routine rounding Spiritual Evaluation: Jean-Pierre appeared a little anxious as he talked about how sick and stressed the rest of his fa ninfa is facing possible eviction and no hot water (mother and brother). Jean-Pierre appeared open to prayer. Spiritual Interventions: Executive Meeting Manager offered supportive presence and peace, while offering prayer. Spiritual Outcomes: He expressed apreciation for visit. Spiritual Goals/Follow-up: Spiritual Care will follow upon request. lan of Mulugeta Wang RN - 01/22/2019 5:55 AM PSTPt is A&O x4, he came in to the ED with coug h for 3 weeks, VS have been stable, droplet precautions initiated, complained of sore throat due to cough, robitussin and Jesus gonzalez MD notified. No reports of falls or injuries t hroughout the shift, will continue to monitor. documented in this encounter Plan of Treatment Not on filedocumented as of this encounter Procedures + +--------+ + + + | Procedure Name | Priori | Date/Time | Associated Diagnosis | Comments | | | ty | | | | + +--------+ + + + | POC GLUCOSE | Routin | 01/23/2019 | | Results for this | | | e | 12:01 PM | | procedure are in the | | | | PST | | results section. | + +--------+ + + + | EXTRA LAVENDER TOP | Routin | 01/23/2019 | | Results for this | | TUBE | e | 6:19 AM | | procedure are in the | | | | PST | | results section. | + +--------+ + + + | EXTRA GREEN TOP TUBE | Routin | 01/23/2019 | | Results for this | | | e | 5:33 AM | | procedure are in the | | | | PST | | results section. | + +--------+ + + + | PROTIME INR | Routin | 01/23/2019 | | Results for this | | | e | 5:33 AM | | procedure are in the | | | | PST | | results section. | + +--------+ + + + | PROTIME INR | Routin | 01/22/2019 | | Results for this | | | e | 6:01 AM | | procedure are in the | | | | PST | | results section. | + +--------+ + + + | CBC NO DIFFERENTIAL | Routin | 01/22/2019 | | Results for this | | | e | 5:15 AM | | procedure are in the | | | | PST | | results section. | + +--------+ + + + | BASIC METABOLIC | Routin | 01/22/2019 | | Results for this | | PANEL | e | 5:15 AM | | procedure are in the | | | | PST | | results section. | + +--------+ + + + | CT ANGIOGRAM | WOLF | 01/21/2019 | | Results for this | | PULMONARY | | 11:23 PM | | procedure are in the | | | | PST | | results section. | + +--------+ + + + | ECG 12 LEAD | STAT | 01/21/2019 | | Results for this | | | | 8:08 PM | | procedure are in the | | | | PST | | results section. | + +--------+ + + + | PROTIME INR | STAT | 01/21/2019 | | Results for this | | | | 7:14 PM | | procedure are in the | | | | PST | | results section. | + +--------+ + + + | XR CHEST AP PORTABLE | STAT | 01/21/2019 | | Results for this | | | | 6:55 PM | | procedure are in the | | | | PST | | results section. | + +--------+ + + + | PROCALCITONIN, SERUM | STAT | 01/21/2019 | | Results for this | | | | 6:34 PM | | procedure are in the | | | | PST | | results section. | + +--------+ + + + | TROPONIN I | STAT | 01/21/2019 | | Results for this | | | | 6:34 PM | | procedure are in the | | | | PST | | results section. | + +--------+ + + + | CBC WITH | STAT | 01/21/2019 | | Results for this | | DIFFERENTIAL | | 6:34 PM | | procedure are in the | | | | PST | | results section. | + +--------+ + + + | TSH | STAT | 01/21/2019 | | Results for this | | | | 6:34 PM | | procedure are in the | | | | PST | | results section. | + +--------+ + + + | B TYPE NATRIURETIC | Add-On | 01/21/2019 | | Results for this | | PEPTIDE | | 6:34 PM | | procedure are in the | | | | PST | | results section. | + +--------+ + + + | LIPASE | STAT | 01/21/2019 | | Results for this | | | | 6:34 PM | | procedure are in the | | | | PST | | results section. | + +--------+ + + + | LACTIC ACID | Routin | 01/21/2019 | | Results for this | | | e | 6:34 PM | | procedure are in the | | | | PST | | results section. | + +--------+ + + + | COMPREHENSIVE | STAT | 01/21/2019 | | Results for this | | METABOLIC PANEL | | 6:34 PM | | procedure are in the | | | | PST | | results section. | + +--------+ + + + | INFLUENZA A AND B | STAT | 01/21/2019 | | Results for this | | RNA, NAAT | | 6:08 PM | | procedure are in the | | | | PST | | results section. | + +--------+ + + + documented in this encounter Results POC Glucose (01/23/2019 12:01 PM PST) + +---------+ + + + | Component | Value | Ref Range | Performed | Pathologist | | | | | At | Signature | + +---------+ + + + | Glucose, | 124 (H) | 70 - 109 mg/dL | [facility] | | | POC | | | [facility] | | | | | | MEDICAL | | | | | | CENTER - | | | | | | LABORATORY | | + +---------+ + + + + + | Specimen | + + | Blood | + + + + + + + | Performing | Address | City/State/Zipcode | Phone Number | | Organization | | | | + + + + + | [facility] | [address] | [place] | [phone] | | [facility] | | [address] | | | - LABORATORY | | | | + + + + + Extra Lavender Top Tube (01/23/2019 6:19 AM PST) + +-------+ + + + | Component | Value | Ref Range | Performed | Pathologist | | | | | At | Signature | + +-------+ + + + | Extra | Done | | [facility] | | | Lavender | | | [facility] | | | Top Tube | | | MEDICAL | | | | | | CENTER - | | | | | | LABORATORY | | + +-------+ + + + + + | Specimen | + + | Blood | + + + + + + + | Performing | Address | City/State/Zipcode | Phone Number | | Organization | | | | + + + + + | [facility] | [address] | [place] | [phone] | | [facility] | | [address] | | | - LABORATORY | | | | + + + + + Extra Green Top Tube (01/23/2019 5:33 AM PST) + +-------+ + + + | Component | Value | Ref Range | Performed | Pathologist | | | | | At | Signature | + +-------+ + + + | Extra Green | Done | | [facility] | | | Top Tube | | | [facility] | | | | | | MEDICAL | | | | | | CENTER - | | | | | | LABORATORY | | + +-------+ + + + + + | Specimen | + + | Blood | + + + + + + + | Performing | Address | City/State/Zipcode | Phone Number | | Organization | | | | + + + + + | [facility] | [address] | [place] | [phone] | | [facility] | | [address] | | | - LABORATORY | | | | + + + + + Protime INR (01/23/2019 5:33 AM PST) + + + + + + | Component | Value | Ref Range | Performed | Pathologist | | | | | At | Signature | + + + + + + | Prothrombin | 15.8 (H) | 11.3 - 13.9 | [facility] | | | Time | | seconds | [facility] | | | | | | MEDICAL | | | | | | CENTER - | | | | | | LABORATORY | | + + + + + + | INR | 1.3 (H)Comment: Usual | 0.9 - 1.1 | [facility] | | | | Oral Anticoagulation | | [facility] | | | | Range: 2.0 - | | MEDICAL | | | | 3.0High Level Oral | | CENTER - | | | | Anticoagulation Range: | | LABORATORY | | | | 2.5 - 3.5 | | | | + + + + + + + + | Specimen | + + | Blood | + + + + + + + | Performing | Address | City/State/Zipcode | Phone Number | | Organization | | | | + + + + + | [facility] | [address] | [place] | [phone] | | [facility] | | [address] | | | - LABORATORY | | | | + + + + + Protime INR (01/22/2019 6:01 AM PST) + + + + + + | Component | Value | Ref Range | Performed | Pathologist | | | | | At | Signature | + + + + + + | Prothrombin | 14.6 (H) | 11.3 - 13.9 | [facility] | | | Time | | seconds | [facility] | | | | | | MEDICAL | | | | | | CENTER - | | | | | | LABORATORY | | + + + + + + | INR | 1.1Comment: Usual Oral | 0.9 - 1.1 | [facility] | | | | Anticoagulation Range: | | [facility] | | | | 2.0 - 3.0High | | MEDICAL | | | | Level Oral | | CENTER - | | | | Anticoagulation Range: | | LABORATORY | | | | 2.5 - 3.5 | | | | + + + + + + + + | Specimen | + + | Blood | + + + + + + + | Performing | Address | City/State/Zipcode | Phone Number | | Organization | | | | + + + + + | [facility] | [address] | [place] | [phone] | | [facility] | | [address] | | | - LABORATORY | | | | + + + + + CBC no Differential (01/22/2019 5:15 AM PST) + + + + + + | Component | Value | Ref Range | Performed | Pathologist | | | | | At | Signature | + + + + + + | White Blood | 7.7 | 4.0 - 11.0 K/uL | [facility] | | | Cells | | | [facility] | | | | | | MEDICAL | | | | | | CENTER - | | | | | | LABORATORY | | + + + + + + | Red Blood | 5.19 | 4.30 - 5.70 | [facility] | | | Cells | | M/uL | [facility] | | | | | | MEDICAL | | | | | | CENTER - | | | | | | LABORATORY | | + + + + + + | Hemoglobin | 13.0 (L) | 13.5 - 18.0 | [facility] | | | | | g/dL | [facility] | | | | | | MEDICAL | | | | | | CENTER - | | | | | | LABORATORY | | + + + + + + | Hematocrit | 42.2 | 40.0 - 51.0 % | [facility] | | | | | | [facility] | | | | | | MEDICAL | | | | | | CENTER - | | | | | | LABORATORY | | + + + + + + | MCV | 81.3 (L) | 83.0 - 101.0 fL | [facility] | | | | | | [facility] | | | | | | MEDICAL | | | | | | CENTER - | | | | | | LABORATORY | | + + + + + + | MCH | 25.0 (L) | 28.0 - 35.0 pg | [facility] | | | | | | [facility] | | | | | | MEDICAL | | | | | | CENTER - | | | | | | LABORATORY | | + + + + + + | MCHC | 30.8 (L) | 32.0 - 36.0 | [facility] | | | | | g/dL | [facility] | | | | | | MEDICAL | | | | | | CENTER - | | | | | | LABORATORY | | + + + + + + | RDW-CV | 16.1 (H) | <15.0 % | [facility] | | | | | | [facility] | | | | | | MEDICAL | | | | | | CENTER - | | | | | | LABORATORY | | + + + + + + | RDW-SD | 48.3 (H) | 35.1 - 46.3 fL | [facility] | | | | | | [facility] | | | | | | MEDICAL | | | | | | CENTER - | | | | | | LABORATORY | | + + + + + + | Platelet | 194 | 140 - 440 K/uL | [facility] | | | Count | | | [facility] | | | | | | MEDICAL | | | | | | CENTER - | | | | | | LABORATORY | | + + + + + + | MPV | 9.2 | 6.5 - 12.4 fL | [facility] | | | | | | [facility] | | | | | | MEDICAL | | | | | | CENTER - | | | | | | LABORATORY | | + + + + + + | % nRBC | 0 | 0 - 2 per 100 | [facility] | | | | | WBCs | [facility] | | | | | | MEDICAL | | | | | | CENTER - | | | | | | LABORATORY | | + + + + + + | Absolute | 0.00 | 0.00 - 0.01 | [facility] | | | nRBC | | K/uL | [facility] | | | | | | MEDICAL | | | | | | CENTER - | | | | | | LABORATORY | | + + + + + + + + | Specimen | + + | Blood | + + + + + + + | Performing | Address | City/State/Zipcode | Phone Number | | Organization | | | | + + + + + | [facility] | [address] | [place] | [phone] | | [facility] | | [address] | | | - LABORATORY | | | | + + + + + Basic Metabolic Panel (01/22/2019 5:15 AM PST) + + + + + + | Component | Value | Ref Range | Performed | Pathologist | | | | | At | Signature | + + + + + + | Na | 137 | 136 - 145 | [facility] | | | | | mmol/L | [facility] | | | | | | MEDICAL | | | | | | CENTER - | | | | | | LABORATORY | | + + + + + + | K | 3.8 | 3.4 - 5.1 | [facility] | | | | | mmol/L | [facility] | | | | | | MEDICAL | | | | | | CENTER - | | | | | | LABORATORY | | + + + + + + | Cl | 101 | 98 - 107 mmol/L | [facility] | | | | | | [facility] | | | | | | MEDICAL | | | | | | CENTER - | | | | | | LABORATORY | | + + + + + + | CO2 | 29 | 20 - 31 mmol/L | [facility] | | | | | | [facility] | | | | | | MEDICAL | | | | | | CENTER - | | | | | | LABORATORY | | + + + + + + | Anion Gap | 7 | 3 - 16 mmol/L | [facility] | | | | | | [facility] | | | | | | MEDICAL | | | | | | CENTER - | | | | | | LABORATORY | | + + + + + + | Glucose | 110 (H) | 60 - 106 mg/dL | [facility] | | | | | | [facility] | | | | | | MEDICAL | | | | | | CENTER - | | | | | | LABORATORY | | + + + + + + | BUN | 12 | 9 - 23 mg/dL | [facility] | | | | | | [facility] | | | | | | MEDICAL | | | | | | CENTER - | | | | | | LABORATORY | | + + + + + + | Creatinine | 1.01 | 0.70 - 1.30 | [facility] | | | | | mg/dL | [facility] | | | | | | MEDICAL | | | | | | CENTER - | | | | | | LABORATORY | | + + + + + + | eGFR, | >60Comment: GLOMERULAR | >=60 | [facility] | | | non- | FILTRATION | mL/min/1.73m2 | [facility] | | | [facility] | RATE,ESTIMATED | | MEDICAL | | | | mL/min/1.24u7Dvsv than | | CENTER - | | | | 60 Chronic kidney | | LABORATORY | | | | disease,if found over a | | | | | | 3-month period.Less than | | | | | | 15 Kidney failureFor | | | | | | | | | | | | Americans,multiply the | | | | | | calculated GFR by 1.21. | | | | | | | | | | + + + + + + | Calcium | 9.1 | 8.7 - 10.4 | [facility] | | | | | mg/dL | [facility] | | | | | | MEDICAL | | | | | | CENTER - | | | | | | LABORATORY | | + + + + + + | BUN/Creatin | 11.9 | | [facility] | | | ine Ratio | | | [facility] | | | | | | MEDICAL | | | | | | CENTER - | | | | | | LABORATORY | | + + + + + + + + | Specimen | + + | Blood | + + + + + + + | Performing | Address | City/State/Zipcode | Phone Number | | Organization | | | | + + + + + | [facility] | [address] | [place] | [phone] | | [facility] | | [address] | | | - LABORATORY | | | | + + + + + CT Angiogram Pulmonary w Contrast (01/21/2019 11:23 PM PST) + + | Specimen | + + | | + + + + + | Narrative | Performed At | + + + | CT ANGIOGRAM PULMONARY W CONTRAST 01/21/2019 11:13 PM HISTORY: | [facility] | | Dyspnea, chronic PE suspected, high pretest prob. COMPARISON: | | | Multiple prior chest x-rays. PROTOCOL: Thin section axial images | | | of the chest were obtained after uneventful administration of 70 mL | | | Omnipaque 350. Coronal and sagittal reformations were acquired. | | | FINDINGS: Neck base is normal. The heart is of normal size. Aorta | | | is normal. The pulmonary arteries are unremarkable. SVC is normal. | | | No enlarged lymph nodes are seen in the mediastinum, juany, or | | | axillae. Trachea and esophagus demonstrate no acute findings. The | | | bilateral lungs are clear. There is no evidence for pleural effusion | | | or pneumothorax. The spleen is enlarged measuring 15.9 cm. | | | Bilateral gynecomastia is present. There are no acute osseous | | | abnormalities. IMPRESSION- Study of adequate diagnostic quality. | | | Study negative for pulmonary embolism or other acute process in the | | | chest. Splenomegaly. A preliminary report was sent by [facility] | | | [facility] with no significant discrepancy on 01/21/2019 11:37 PM. | | | Dictated and Signed by: Sonny Garner MD Electronically signed: | | | 01/22/2019 9:09 AM | | + + + + + | Procedure Note | + + | Graham, Rad Results In - 01/22/2019 9:[address] ANGIOGRAM PULMONARY W CONTRAST | | 01/21/2019 11:13 PMHISTORY: Dyspnea, chronicPE suspected, high pretest prob.COMPARISON: | | Multiple prior chest x-rays.PROTOCOL: Thin section axial images of the chest were | | obtained after uneventfuladministration of 70 mL Omnipaque 350. Coronal and sagittal | | reformations wereacquired.FINDINGS:Neck base is normal.The heart is of normal size. | | Aorta is normal. The pulmonary arteries areunremarkable. SVC is normal.No enlarged lymph | | nodes are seen in the mediastinum, juany, or axillae. Tracheaand esophagus demonstrate | | no acute findings.The bilateral lungs are clear. There is no evidence for pleural | | effusion orpneumothorax.The spleen is enlarged measuring 15.9 cm.Bilateral gynecomastia | | is present. There are no acute osseous abnormalities.IMPRESSION- Study of adequate | | diagnostic quality. Study negative for pulmonary embolism orother acute process in the | | chest.Splenomegaly.A preliminary report was sent by [facility] with no significant | | discrepancyon 01/21/2019 11:37 PM.Dictated and Signed by: Sonny Garner MD | | Electronically signed: 01/22/2019 9:09 AM | |The heart is of normal size. Aorta is normal. The pulmonary arteries are | |unremarkable. SVC is normal. | | | |No enlarged lymph nodes are seen in the mediastinum, juany, or axillae. Trachea | |and esophagus demonstrate no acute findings. | | | |The bilateral lungs are clear. There is no evidence for pleural effusion or | |pneumothorax. | | | |The spleen is enlarged measuring 15.9 cm. | | | |Bilateral gynecomastia is present. There are no acute osseous abnormalities. | | | |IMPRESSION- | |Study of adequate diagnostic quality. Study negative for pulmonary embolism or | |other acute process in the chest. | | | |Splenomegaly. | | | |A preliminary report was sent by [facility] with no significant discrepancy | |on 01/21/2019 11:37 PM. | | | |Dictated and Signed by: Sonny Garner MD | | Electronically signed: 01/22/2019 9:09 AM | + + + +---------+ + + | Performing | Address | City/State/Zipcode | Phone Number | | Organization | | | | + +---------+ + + | [facility] | | | | + +---------+ + + ECG 12 lead (01/21/2019 8:08 PM PST) + + + + + + | Component | Value | Ref Range | Performed | Pathologist | | | | | At | Signature | + + + + + + | VENTRICULAR | 114 | BPM | [facility] | | | RATE EKG | | | | | + + + + + + | ATRIAL RATE | 114 | BPM | [facility] | | + + + + + + | P-R | 172 | ms | [facility] | | | INTERVAL | | | | | + + + + + + | QRS | 80 | ms | [facility] | | | DURATION | | | | | + + + + + + | Q-T | 310 | ms | [facility] | | | INTERVAL | | | | | + + + + + + | Q-T | 427 | ms | [facility] | | | INTERVAL | | | | | | (CORRECTED) | | | | | + + + + + + | P WAVE AXIS | 40 | degrees | [facility] | | + + + + + + | QRS AXIS | 47 | degrees | [facility] | | + + + + + + | T AXIS | 56 | degrees | [facility] | | + + + + + + | INTERPRETAT | Sinus tachycardiaLow | | [facility] | | | ION TEXT | voltage QRSCannot rule | | | | | | out Inferior infarct , | | | | | | age undeterminedAbnormal | | | | | | ECGNo previous ECGs | | | | | | availableConfirmed by | | | | | | KHADRA ALICIA MD ([id number]) | | | | | | on 01/22/2019 6:44:36 AM | | | | | | | | | | + + + + + + + + | Specimen | + + | | + + + + + | Narrative | Performed At | + + + | | | + + + + +---------+ + + | Performing | Address | City/State/Zipcode | Phone Number | | Organization | | | | + +---------+ + + | [facility] | | | | + +---------+ + + Protime INR (01/21/2019 7:14 PM PST) + + + + + + | Component | Value | Ref Range | Performed | Pathologist | | | | | At | Signature | + + + + + + | Prothrombin | 14.7 (H) | 11.3 - 13.9 | [facility] | | | Time | | seconds | [facility] | | | | | | MEDICAL | | | | | | CENTER - | | | | | | LABORATORY | | + + + + + + | INR | 1.2 (H)Comment: Usual | 0.9 - 1.1 | [facility] | | | | Oral Anticoagulation | | [facility] | | | | Range: 2.0 - | | MEDICAL | | | | 3.0High Level Oral | | CENTER - | | | | Anticoagulation Range: | | LABORATORY | | | | 2.5 - 3.5 | | | | + + + + + + + + | Specimen | + + | Blood | + + + + + + + | Performing | Address | City/State/Zipcode | Phone Number | | Organization | | | | + + + + + | [facility] | [address] | [place], [place] | [phone] | | [facility] | | [address] | | | - LABORATORY | | | | + + + + + XR Chest AP Portable (01/21/2019 6:55 PM PST) + + | Specimen | + + | | + + + + + | Impressions | Performed At | + + + | Hypoexpanded lungs with minimal bronchovascular crowding. No | [facility] | | evidence of pneumothorax, pleural effusion, or focal consolidation. | | | Dictated and Signed by: Bob Demarco MD Electronically | | | signed: 01/21/2019 8:36 PM | | + + + + + + | Narrative | Performed At | + + + | XR CHEST AP PORTABLE 01/21/2019 6:55 PM HISTORY: NAUSEA EMESIS | [facility] | | DIARRHEA (ADULT) COUGH FEVER (9 WEEKS TO 74 YEARS). COMPARISON: | | | 12/23/2018 Findings: Hypoexpanded lungs with minimal | | | bronchovascular crowding. No evidence of pneumothorax, pleural | | | effusion, or focal consolidation. Heart size is within normal limits. | | | Pulmonary vasculature is within normal limits. Aorta is normal. | | | Mediastinum is unremarkable. No acute osseous or soft tissue | | | abnormality identified. | | + + + + + | Procedure Note | + + | Graham, Rad Results In - 01/21/2019 8:39 PM PST XR CHEST AP PORTABLE 01/21/2019 6:55 PM | | | | HISTORY: NAUSEA | | EMESIS | | DIARRHEA (ADULT) | | COUGH | | FEVER (9 WEEKS TO 74 YEARS). | | | | COMPARISON: 12/23/2018 | | | | Findings: | | Hypoexpanded lungs with minimal bronchovascular crowding. No evidence of | | pneumothorax, pleural effusion, or focal consolidation. Heart size is within | | normal limits. Pulmonary vasculature is within normal limits. Aorta is normal. | | Mediastinum is unremarkable. No acute osseous or soft tissue abnormality | | identified. | | | | IMPRESSION: | | Hypoexpanded lungs with minimal bronchovascular crowding. No evidence of | | pneumothorax, pleural effusion, or focal consolidation. | | | | Dictated and Signed by: Bob Washington, MD | | Electronically signed: 01/21/2019 8:36 PM | + + + +---------+ + + | Performing | Address | City/State/Zipcode | Phone Number | | Organization | | | | + +---------+ + + | [facility] | | | | + +---------+ + + B Type Natriuretic Peptide (01/21/2019 6:34 PM PST) + +-------+ + + + | Component | Value | Ref Range | Performed | Pathologist | | | | | At | Signature | + +-------+ + + + | BNP | 8 | <100 pg/mL | [facility] | | | | | | [facility] | | | | | | MEDICAL | | | | | | CENTER - | | | | | | LABORATORY | | + +-------+ + + + + + | Specimen | + + | Blood | + + + + + + + | Performing | Address | City/State/Zipcode | Phone Number | | Organization | | | | + + + + + | [facility] | [address] | [place] | [phone] | | [facility] | | [address] | | | - LABORATORY | | | | + + + + + TSH (01/21/2019 6:34 PM PST) + +-------+ + + + | Component | Value | Ref Range | Performed | Pathologist | | | | | At | Signature | + +-------+ + + + | TSH | 0.80 | 0.55 - 4.78 | [facility] | | | | | uIU/mL | [facility] | | | | | | MEDICAL | | | | | | CENTER - | | | | | | LABORATORY | | + +-------+ + + + + + | Specimen | + + | Blood | + + + + + + + | Performing | Address | City/State/Zipcode | Phone Number | | Organization | | | | + + + + + | [facility] | [address] | [place] | [phone] | | [facility] | | [address] | | | - LABORATORY | | | | + + + + + Procalcitonin (01/21/2019 6:34 PM PST) + + + + + + | Component | Value | Ref Range | Performed | Pathologist | | | | | At | Signature | + + + + + + | Procalciton | 0.25 | <=0.50 ng/mL | [facility] | | | in | | | [facility] | | | | | | MEDICAL | | | | | | CENTER - | | | | | | LABORATORY | | + + + + + + | Comment | Comment: < 0.50 | | [facility] | | | | ng/mL:Procalcitonin | | [facility] | | | | levels below 0.50 ng/mL | | MEDICAL | | | | on the first day of | | CENTER - | | | | admission represents a | | LABORATORY | | | | low risk for progression | | | | | | to severe sepsis and/or | | | | | | septic shock, however | | | | | | these do not exclude an | | | | | | infection, because | | | | | | localized infections | | | | | | (without systemic signs) | | | | | | may also be associated | | | | | | with such low levels. | | | | | | > 2.00 | | | | | | ng/mL:Procalcitonin | | | | | | levels above 2.00 ng/mL | | | | | | on the first day of | | | | | | admission represents a | | | | | | high risk for | | | | | | progression to severe | | | | | | sepsis and/or septic | | | | | | shock. If the | | | | | | procalcitonin | | | | | | measurement is performed | | | | | | shortly after the | | | | | | systemic infection | | | | | | process has started | | | | | | (usually less than 6 | | | | | | hours), these values may | | | | | | still be low. As | | | | | | various non-infectious | | | | | | conditions are known to | | | | | | induce procalcitonin as | | | | | | well, procalcitonin | | | | | | levels between 0.50 | | | | | | ng/mL and 2.00 ng/mL | | | | | | should be reviewed | | | | | | carefully to take into | | | | | | account the specific | | | | | | clinical background and | | | | | | condition(s) of the | | | | | | individual patient. | | | | + + + + + + + + | Specimen | + + | Blood | + + + + + + + | Performing | Address | City/State/Zipcode | Phone Number | | Organization | | | | + + + + + | [facility] | [address] | [place] | [phone] | | [facility] | | [address] | | | - LABORATORY | | | | + + + + + Lactic Acid (01/21/2019 6:34 PM PST) + +-------+ + + + | Component | Value | Ref Range | Performed | Pathologist | | | | | At | Signature | + +-------+ + + + | Lactate | 1.2 | 0.5 - 2.2 | [facility] | | | | | mmol/L | [facility] | | | | | | MEDICAL | | | | | | CENTER - | | | | | | LABORATORY | | + +-------+ + + + + + | Specimen | + + | Blood | + + + + + + + | Performing | Address | City/State/Zipcode | Phone Number | | Organization | | | | + + + + + | [facility] | [address] | [place] | [phone] | | [facility] | | [address] | | | - LABORATORY | | | | + + + + + Troponin I (01/21/2019 6:34 PM PST) + + + + + + | Component | Value | Ref Range | Performed | Pathologist | | | | | At | Signature | + + + + + + | Troponin I | 0.03Comment: | <0.06 ng/mL | [facility] | | | | Comment:Reference | | [facility] | | | | Ranges: 0.00-0.06 = | | MEDICAL | | | | NORMAL >0.06 = | | CENTER - | | | | SUSPICIOUS FOR | | LABORATORY | | | | MYOCARDIAL DAMAGE NOTE: | | | | | | Values greater than | | | | | | 0.78 ng/mL have been | | | | | | shown to be strongly | | | | | | associated with acute | | | | | | myocardial infarction. | | | | | | The [employer] | | | | | | [employer] ([employer]) | | | | | | recommends a decision | | | | | | limit of 0.06 ng/mL for | | | | | | this assay. Results | | | | | | greater than 0.06 can | | | | | | reflect a pre-infarct | | | | | | acute coronary syndrome, | | | | | | but can also reflect | | | | | | myocardial necrosis or | | | | | | injury that is not due | | | | | | to coronary artery | | | | | | disease. Some of these | | | | | | causes are sepsis, | | | | | | hypocolemia, atrial | | | | | | fibrillation, heart | | | | | | failure, pulmonary | | | | | | embolism, myocarditis, | | | | | | myocardial contusion, | | | | | | and renal failure. The | | | | | | diagnosis of myocardial | | | | | | infarction should be | | | | | | based on a combination | | | | | | of the patient's | | | | | | clinical presentation | | | | | | and the clinical | | | | | | laboratory test results | | | | | | (especially serial | | | | | | troponin levels). | | | | + + + + + + + + | Specimen | + + | Blood | + + + + + + + | Performing | Address | City/State/Zipcode | Phone Number | | Organization | | | | + + + + + | [facility] | [address] | [place] | [phone] | | [facility] | | [address] | | | - LABORATORY | | | | + + + + + Lipase (01/21/2019 6:34 PM PST) + + + + + + | Component | Value | Ref Range | Performed | Pathologist | | | | | At | Signature | + + + + + + | Lipase | 29Comment: New method in | 12 - 53 U/L | [facility] | | | | use as of April 30, | | [facility] | | | | 2019. Check reference | | MEDICAL | | | | range for changes.Some | | CENTER - | | | | analytes show | | LABORATORY | | | | significant variation | | | | | | from the previous | | | | | | method.It may be | | | | | | necessary to set a new | | | | | | baseline for this | | | | | | analyte. | | | | + + + + + + + + | Specimen | + + | Blood | + + + + + + + | Performing | Address | City/State/Zipcode | Phone Number | | Organization | | | | + + + + + | [facility] | [address] | [place] | [phone] | | [facility] | | [address] | | | - LABORATORY | | | | + + + + + Comprehensive Metabolic Panel (01/21/2019 6:34 PM PST) + + + + + + | Component | Value | Ref Range | Performed | Pathologist | | | | | At | Signature | + + + + + + | Na | 134 (L) | 136 - 145 | [facility] | | | | | mmol/L | [facility] | | | | | | MEDICAL | | | | | | CENTER - | | | | | | LABORATORY | | + + + + + + | K | 3.9 | 3.4 - 5.1 | [facility] | | | | | mmol/L | [facility] | | | | | | MEDICAL | | | | | | CENTER - | | | | | | LABORATORY | | + + + + + + | Cl | 99 | 98 - 107 mmol/L | [facility] | | | | | | [facility] | | | | | | MEDICAL | | | | | | CENTER - | | | | | | LABORATORY | | + + + + + + | CO2 | 27 | 20 - 31 mmol/L | [facility] | | | | | | [facility] | | | | | | MEDICAL | | | | | | CENTER - | | | | | | LABORATORY | | + + + + + + | Anion Gap | 8 | 3 - 16 mmol/L | [facility] | | | | | | [facility] | | | | | | MEDICAL | | | | | | CENTER - | | | | | | LABORATORY | | + + + + + + | Glucose | 108 (H) | 60 - 106 mg/dL | [facility] | | | | | | [facility] | | | | | | MEDICAL | | | | | | CENTER - | | | | | | LABORATORY | | + + + + + + | BUN | 11 | 9 - 23 mg/dL | [facility] | | | | | | [facility] | | | | | | MEDICAL | | | | | | CENTER - | | | | | | LABORATORY | | + + + + + + | Creatinine | 1.12 | 0.70 - 1.30 | [facility] | | | | | mg/dL | [facility] | | | | | | [facility] | | | | | | CENTER - | | | | | | LABORATORY | | + + + + + + | eGFR, | >60Comment: GLOMERULAR | >=60 | [facility] | | | non- | FILTRATION | mL/min/1.73m2 | [facility] | | | [employer] [facility] | RATE,ESTIMATED | | MEDICAL | | | | mL/min/1.77t2Mkyb than | | CENTER - | | | | 60 Chronic kidney | | LABORATORY | | | | disease,if found over a | | | | | | 3-month period.Less than | | | | | | 15 Kidney failureFor | | | | | | | | | | | | Americans,multiply the | | | | | | calculated GFR by 1.21. | | | | | | | | | | + + + + + + | Calcium | 9.5 | 8.7 - 10.4 | [facility] | | | | | mg/dL | [facility] | | | | | | [facility]ICAL | | | | | | CENTER - | | | | | | LABORATORY | | + + + + + + | Albumin | 4.6 | 3.2 - 4.8 g/dL | [facility] | | | | | | [facility] | | | | | | MEDICAL | | | | | | CENTER - | | | | | | LABORATORY | | + + + + + + | Bilirubin | 0.9 | 0.3 - 1.2 mg/dL | [facility] | | | Total | | | [facility] | | | | | | MEDICAL | | | | | | CENTER - | | | | | | LABORATORY | | + + + + + + | Total | 7.7 | 5.7 - 8.2 g/dL | [facility] | | | Protein | | | [facility] | | | | | | MEDICAL | | | | | | CENTER - | | | | | | LABORATORY | | + + + + + + | AST | 54 (H) | 0 - 34 U/L | [facility] | | | | | | [facility] | | | | | | MEDICAL | | | | | | CENTER - | | | | | | LABORATORY | | + + + + + + | ALT | 55 (H) | 10 - 49 U/L | [facility] | | | | | | [facility] | | [facility] | | | MEDICAL | | | | | | CENTER - | | | | | | LABORATORY | | + + + + + + | Alkaline | 70 | 46 - 116 U/L | [facility] | | | Phosphatase | | | [facility] | | | | | | MEDICAL | | | | | | CENTER - | | | | | | LABORATORY | | + + + + + + | Globulin | 3.1 | 2.1 - 3.8 g/dL | [facility] | | | | | | [facility] | | | | | | MEDICAL | | | | | | CENTER - | | | | | | LABORATORY | | + + + + + + | Albumin/Chayito | 1.5 | 0.8 - 1.9 | [facility] | | | bulin Ratio | | | [facility] | | | | | | MEDICAL | | | | | | CENTER - | | | | | | LABORATORY | | + + + + + + | BUN/Creatin | 9.8 | | [facility] | | | ine Ratio | | | [facility] | | | | | | MEDICAL | | | | | | CENTER - | | | | | | LABORATORY | | + + + + + + + + | Specimen | + + | Blood | + + + + + + + | Performing | Address | City/State/Zipcode | Phone Number | | Organization | | | | + + + + + | [facility] | [address] | [place] | [phone] | | [facility] | | [address] | | | - LABORATORY | | | | + + + + + CBC with Differential (01/21/2019 6:34 PM PST) + + + + + + | Component | Value | Ref Range | Performed | Pathologist | | | | | At | Signature | + + + + + + | White Blood | 10.1 | 4.0 - 11.0 K/uL | [facility] | | | Cells | | | [facility] | | | | | | MEDICAL | | | | | | CENTER - | | | | | | LABORATORY | | + + + + + + | Red Blood | 5.55 | 4.30 - 5.70 | [facility] | | | Cells | | M/uL | [facility] | | | | | | [facility] | | | | | | CENTER - | | | | | | LABORATORY | | + + + + + + | Hemoglobin | 13.8 | 13.5 - 18.0 | [facility] | | | | | g/dL | [facility] | | | | | | MEDICAL | | | | | | CENTER - | | | | | | LABORATORY | | + + + + + + | Hematocrit | 44.2 | 40.0 - 51.0 % | [facility] | | | | | | [facility] | | | | | | MEDICAL | | | | | | CENTER - | | | | | | LABORATORY | | + + + + + + | MCV | 79.6 (L) | 83.0 - 101.0 fL | [facility] | | | | | | [facility] | | | | | | MEDICAL | | | | | | CENTER - | | | | | | LABORATORY | | + + + + + + | MCH | 24.9 (L) | 28.0 - 35.0 pg | [facility] | | | | | | [facility] | | | | | | MEDICAL | | | | | | CENTER - | | | | | | LABORATORY | | + + + + + + | MCHC | 31.2 (L) | 32.0 - 36.0 | [facility] | | | | | g/dL | [facility] | | | | | | MEDICAL | | | | | | CENTER - | | | | | | LABORATORY | | + + + + + + | RDW-CV | 15.9 (H) | <15.0 % | [facility] | | | | | | [facility] | | | | | | MEDICAL | | | | | | CENTER - | | | | | | LABORATORY | | + + + + + + | RDW-SD | 45.4 | 35.1 - 46.3 fL | [facility] | | | | | | [facility] | | | | | | MEDICAL | | | | | | CENTER - | | | | | | LABORATORY | | + + + + + + | Platelet | 226 | 140 - 440 K/uL | [facility] | | | Count | | | [facility] | | | | | | MEDICAL | | | | | | CENTER - | | | | | | LABORATORY | | + + + + + + | MPV | 9.3 | 6.5 - 12.4 fL | [facility] | | | | | | [facility] | | | | | | MEDICAL | | | | | | CENTER - | | | | | | LABORATORY | | + + + + + + | % | 74.3 | 45.0 - 82.0 % | [facility] | | | Neutrophils | | | [facility] | | | | | | MEDICAL | | | | | | CENTER - | | | | | | LABORATORY | | + + + + + + | % | 0.5 (L) | 20.0 - 45.0 % | [facility] | | | Lymphocytes | | | [facility] | | | | | | MEDICAL | | | | | | CENTER - | | | | | | LABORATORY | | + + + + + + | % Monocytes | 23.0 (H) | 4.0 - 12.0 % | [facility] | | | | | | [facility] | | | | | | MEDICAL | | | | | | CENTER - | | | | | | LABORATORY | | + + + + + + | % | 1.3 | 0.0 - 5.0 % | [facility] | | | Eosinophils | | | [facility] | | | | | | MEDICAL | | | | | | CENTER - | | | | | | LABORATORY | | + + + + + + | % Basophils | 0.4 | 0.0 - 1.0 % | [facility] | | | | | | [facility] | | | | | | MEDICAL | | | | | | CENTER - | | | | | | LABORATORY | | + + + + + + | % Immature | 0.5 (H)Comment: | 0.0 - 0.4 % | [facility] | | | Granulocyte | Preliminary studies have | | [facility] | | | s | indicated the IG% | | MEDICAL | | | | and/or IG# show promise | | CENTER - | | | | as an early indicator | | LABORATORY | | | | for infection. | | | | + + + + + + | Absolute | 7.51 | 1.80 - 8.50 | [facility] | | | Neutrophils | | K/uL | [facility] | | | | | | MEDICAL | | | | | | CENTER - | | | | | | LABORATORY | | + + + + + + | Absolute | 0.05 (L) | 0.60 - 3.20 | [facility] | | | Lymphocytes | | K/uL | [facility] | | | | | | MEDICAL | | | | | | CENTER - | | | | | | LABORATORY | | + + + + + + | Absolute | 2.33 (H) | 0.00 - 1.00 | [facility] | | | Monocytes | | K/uL | [facility] | | | | | | MEDICAL | | | | | | CENTER - | | | | | | LABORATORY | | + + + + + + | Absolute | 0.13 | 0.00 - 0.40 | [facility] | | | Eosinophils | | K/uL | [facility] | | | | | | MEDICAL | | | | | | CENTER - | | | | | | LABORATORY | | + + + + + + | Absolute | 0.04 | 0.00 - 0.10 | [facility] | | | Basophils | | K/uL | [facility] | | | | | | MEDICAL | | | | | | CENTER - | | | | | | LABORATORY | | + + + + + + | Absolute | 0.05 (H) | 0.00 - 0.03 | [facility] | | | Immature | | K/uL | [facility] | | | Granulocyte | | | MEDICAL | | | s | | | CENTER - | | | | | | LABORATORY | | + + + + + + | % nRBC | 0 | 0 - 2 per 100 | [facility] | | | | | WBCs | [facility] | | | | | | MEDICAL | | | | | | CENTER - | | | | | | LABORATORY | | + + + + + + | Absolute | 0.00 | 0.00 - 0.01 | [facility] | | | nRBC | | K/uL | [facility] | | | | | | MEDICAL | | | | | | CENTER - | | | | | | LABORATORY | | + + + + + + + + | Specimen | + + | Blood | + + + + + + + | Performing | Address | City/State/Zipcode | Phone Number | | Organization | | | | + + + + + | [facility] | [address] | [place] | [phone] | | [facility] | | [address] | | | - LABORATORY | | | | + + + + + Influenza A and B RNA, NAAT (01/21/2019 6:08 PM PST) + + + + + + | Component | Value | Ref Range | Performed | Pathologist | | | | | At | Signature | + + + + + + | Influenza A | Negative | Negative, Test | [facility] | | | PCR | | not performed | [facility] | | | | | | MEDICAL | | | | | | CENTER - | | | | | | LABORATORY | | + + + + + + | Influenza B | Positive (A) | Negative, Test | [facility] | | | PCR | | not performed | [facility] | | | | | | MEDICAL | | | | | | CENTER - | | | | | | LABORATORY | | + + + + + + + + | Specimen | + + | Tissue - Specimen | | from internal nose | | (specimen) | + + + + + + + | Performing | Address | City/State/Zipcode | Phone Number | | Organization | | | | + + + + + | [facility] | [address] | [place] | [phone] | | [facility] | | [address] | | | - LABORATORY | | | | + + + + + documented in this encounter Visit Diagnoses + + | Diagnosis | + + | Acute respiratory failure with hypoxia (HCC) - Primary Acute respiratory failure | + + | Dyspnea, unspecified type | + + | Cough | + + | Influenza B Influenza with other respiratory manifestations | + + | Tachycardia Tachycardia, unspecified | + + | Obesity, unspecified classification, unspecified obesity type, unspecified whether | | serious comorbidity present | + + | Bronchitis Bronchitis, not specified as acute or chronic | + + documented in this encounter Administered Medications + +--------+ + +------+------+ | Medication Order | MAR | Action | Dose | Rate | Site | | | Action | Date | | | | + +--------+ + +------+------+ | acetaminophen (TYLENOL) tablet | Given | 01/22/20 | 1,000 mg | | | | 1,000 mg 1,000 mg, Oral, ONCE, | | 19 6:14 | | | | | 01/21/19 at 1815, For 1 dose | | PM PST | | | | + +--------+ + +------+------+ +---+---+ | | | +---+---+ + +-------+ +--------+---+---+ | acetaminophen (TYLENOL) tablet | Given | 01/23/20 | 650 mg | | | | 650 mg 650 mg, Oral, EVERY 4 | | 19 6:56 | | | | | HOURS PRN, Pain, or fever >= 38.6 | | PM PST | | | | | C (101.5 F), Starting [facility] | | | | | | | 01/22/19 at 0111 | | | | | | + +-------+ +--------+---+---+ +---+---+ | | | +---+---+ + +-------+ +--------+---+---+ | albuterol 2.5 mg/3 mL nebulizer | Given | 01/23/20 | 2.5 mg | | | | solution 2.5 mg 2.5 mg, | | 19 3:40 | | | | | Nebulization, RT EVERY 4 HOURS | | PM PST | | | | | PRN, Shortness of Breath, | | | | | | | Starting [place] 01/22/19 at 0111 | | | | | | + +-------+ +--------+---+---+ +-------+ +--------+---+---+ | Given | 01/23/20 | 2.5 mg | | | | | 19 8:16 | | | | | | AM PST | | | | +-------+ +--------+---+---+ + +---+ | | | + +---+ | albuterol 2.5 mg/3 mL nebulizer | | | solution 2.5 mg 2.5 mg, | | | Nebulization, RT EVERY 2 HOURS | | | PRN, Shortness of Breath, | | | Starting [place] 01/22/19 at 1745 | | + +---+ | | | + +---+ + +-------+ +------+---+---+ | albuterol 2.5 mg/3 mL nebulizer | Given | 01/22/20 | 5 mg | | | | solution 5 mg 5 mg, | | 19 6:17 | | | | | Nebulization, RT Once, Wed | | PM PST | | | | | 01/21/19 at 1815, For 1 dose, RT | | | | | | | will administer., | | | | | | + +-------+ +------+---+---+ +---+---+ | | | +---+---+ + +-------+ +-------+---+---+ | albuterol-ipratropium 2.5-0.5 | Given | 01/22/20 | 3 mLs | | | | mg/3 mL nebulizer solution 3 mL | | 19 6:18 | | | | | 3 mL, Nebulization, RT Once, Wed | | PM PST | | | | | 01/21/19 at 1815, For 1 dose | | | | | | + +-------+ +-------+---+---+ +---+---+ | | | +---+---+ + +-------+ +-------+---+---+ | albuterol-ipratropium 2.5-0.5 | Given | 01/24/20 | 3 mLs | | | | mg/3 mL nebulizer solution 3 mL | | 19 9:07 | | | | | 3 mL, Nebulization, RT Q6H, First | | AM PST | | | | | dose on [place] 01/22/19 at 1645 | | | | | | + +-------+ +-------+---+---+ +-------+ +-------+---+---+ | Given | 01/24/20 | 3 mLs | | | | | 19 3:24 | | | | | | AM PST | | | | +-------+ +-------+---+---+ | Given | 01/23/20 | 3 mLs | | | | | 19 8:30 | | | | | | PM PST | | | | +-------+ +-------+---+---+ +---+---+ | | | +---+---+ + +-------+ +--------+---+---+ | benzonatate (TESSALON) capsule | Given | 01/24/20 | 200 mg | | | | 200 mg 200 mg, Oral, 3 TIMES | | 19 2:59 | | | | | DAILY PRN, Cough, Starting [place] | | AM PST | | | | | 01/22/19 at 0111 | | | | | | + +-------+ +--------+---+---+ +-------+ +--------+---+---+ | Given | 01/23/20 | 200 mg | | | | | 19 6:56 | | | | | | PM PST | | | | +-------+ +--------+---+---+ | Given | 01/23/20 | 200 mg | | | | | 19 6:28 | | | | | | AM PST | | | | +-------+ +--------+---+---+ +---+---+ | | | +---+---+ + +-------+ +--------+---+---+ | gabapentin (NEURONTIN) capsule | Given | 01/23/20 | 300 mg | | | | 300 mg 300 mg, Oral, NIGHTLY, | | 19 8:49 | | | | | First dose (after last | | PM PST | | | | | modification) on [facility] 01/22/19 at | | | | | | | 2100 | | | | | | + +-------+ +--------+---+---+ +---+---+ | | | +---+---+ + +-------+ +--------+---+---+ | guaiFENesin (ROBITUSSIN) 100 | Given | 01/24/20 | 200 mg | | | | mg/5 mL liquid 200 mg 200 mg, | | 19 6:55 | | | | | Oral, EVERY 4 HOURS PRN, Cough, | | AM PST | | | | | Starting [facility] 01/22/19 at 0111 | | | | | | + +-------+ +--------+---+---+ +-------+ +--------+---+---+ | Given | 01/23/20 | 200 mg | | | | | 19 10:58 | | | | | | PM PST | | | | +-------+ +--------+---+---+ | Given | 01/23/20 | 200 mg | | | | | 19 4:44 | | | | | | AM PST | | | | +-------+ +--------+---+---+ +---+---+ | | | +---+---+ + +-------+ +--------+---+ + | heparin 5,000 units/mL | Given | 01/24/20 | 5,000 | | Abdomen- | | injection 5,000 Units 5,000 | | 19 9:53 | Units | | LLQ | | Units, Subcutaneous, EVERY 12 | | AM PST | | | | | HOURS (2 times per day), First | | | | | | | dose on [place] 01/22/19 at 2100 | | | | | | + +-------+ +--------+---+ + +-------+ +--------+---+ + | Given | 01/23/20 | 5,000 | | Abdomen- | | | 19 8:49 | Units | | LLQ | | | PM PST | | | | +-------+ +--------+---+ + +---+---+ | | | +---+---+ + +-------+ +--------+---+---+ | ibuprofen (ADVIL,MOTRIN) tablet | Given | 01/22/20 | 600 mg | | | | 600 mg 600 mg, Oral, ONCE, Sat | | 19 6:14 | | | | | 01/21/19 at 1815, For 1 dose, | | PM PST | | | | | Give with food., | | | | | | + +-------+ +--------+---+---+ +---+---+ | | | +---+---+ + +-------+ +--------+---+---+ | iohexol (OMNIPAQUE 350) 350 | Given | 01/22/20 | 70 mLs | | | | mg/mL injection 70 mL 70 mL, | | 19 11:23 | | | | | Intravenous, ONCE PRN, Other, | | PM PST | | | | | Starting Sat01/21/19 at 2323, | | | | | | | For 1 dose, Cat Scanner | | | | | | + +-------+ +--------+---+---+ +---+---+ | | | +---+---+ + +-------+ +------+---+---+ | ondansetron (ZOFRAN ODT) | Given | 01/22/20 | 4 mg | | | | disintegrating tablet 4 mg 4 mg, | | 19 6:14 | | | | | Oral, ONCE, Sat01/21/19 at | | PM PST | | | | | 1815, For 1 dose | | | | | | + +-------+ +------+---+---+ +---+---+ | | | +---+---+ + +-------+ +-------+---+---+ | oseltamivir (TAMIFLU) capsule | Given | 01/24/20 | 75 mg | | | | 75 mg 75 mg, Oral, 2 TIMES | | 19 9:53 | | | | | DAILY, First dose on Sat01/21/19 | | AM PST | | | | | at 2220, Capsules may be opened | | | | | | | and contents mixed with sweetened | | | | | | | liquid such as chocolate syrup., | | | | | | | Indications: Influenza | | | | | | + +-------+ +-------+---+---+ +-------+ +-------+---+---+ | Given | 01/23/20 | 75 mg | | | | | 19 8:49 | | | | | | PM PST | | | | +-------+ +-------+---+---+ | Given | 01/23/20 | 75 mg | | | | | 19 9:42 | | | | | | AM PST | | | | +-------+ +-------+---+---+ + +---+ | | | + +---+ | oxymetazoline (AFRIN) 0.05% | | | nasal spray 2 spray 2 spray, | | | Each Nare, 2 TIMES DAILY PRN, | | | Congestion, Starting [facility] 01/22/19 | | | at 1627 | | + +---+ | | | + +---+ + +-------+ +-------+---+---+ | pantoprazole (PROTONIX) DR | Given | 01/24/20 | 40 mg | | | | tablet 40 mg 40 mg, Oral, DAILY | | 19 6:55 | | | | | BEFORE BREAKFAST, First dose on | | AM PST | | | | | [facility] 01/22/19 at 0700, Indication: | | | | | | | GERD | | | | | | + +-------+ +-------+---+---+ +-------+ +-------+---+---+ | Given | 01/23/20 | 40 mg | | | | | 19 6:22 | | | | | | AM PST | | | | +-------+ +-------+---+---+ +---+---+ | | | +---+---+ + +---------+ +--------+-------+---+ | sodium chloride 0.9% (NS) bolus | New Bag | 01/22/20 | 1,000 | 1000 | | | 1,000 mL 1,000 mL, Intravenous, | | 19 6:41 | mLs | mL/hr | | | Administer over 1 Hours, ONCE, | | PM PST | | | | | 01/21/19 at 1815, For 1 dose | | | | | | + +---------+ +--------+-------+---+ +---+---+ | | | +---+---+ + + + +---+-------+---+ | sodium chloride 0.9% (NS) bolus | Restarte | 01/22/20 | | 1000 | | | 1,000 mL 1,000 mL, Intravenous, | d | 19 9:44 | | mL/hr | | | Administer over 1 Hours, ONCE, | | PM PST | | | | | 01/21/19 at 1950, For 1 dose | | | | | | + + + +---+-------+---+ +---+---+ | | | +---+---+ + +-------+ +-------+---+---+ | warfarin (COUMADIN) tablet 10 | Given | 01/23/20 | 10 mg | | | | mg 10 mg, Oral, ONCE, [place] | | 19 12:46 | | | | | 01/22/19 at 0005, For 1 dose, | | AM PST | | | | | Reproductive Risk: Use | | | | | | | appropriate handling precautions. | | | | | | | Drug education required., | | | | | | + +-------+ +-------+---+---+ +---+---+ | | | +---+---+ + +-------+ +-------+---+---+ | warfarin (COUMADIN) tablet 10 | Given | 01/23/20 | 10 mg | | | | mg 10 mg, Oral, ONCE, [place] | | 19 9:43 | | | | | 01/22/19 at 0930, For 1 dose, | | AM PST | | | | | Reproductive Risk: Use | | | | | | | appropriate handling precautions. | | | | | | | Drug education required., | | | | | | + +-------+ +-------+---+---+ + +---+ | | | + +---+ | warfarin (COUMADIN) tablet 10 | | | mg 10 mg, Oral, Daily - | | | Warfarin, First dose (after last | | | reorder) on Sat01/23/19 at 1800, | | | Reproductive Risk: Use | | | appropriate handling precautions. | | | Drug education required., | | + +---+ | | | + +---+ | warfarin per pharmacy PHARMACY | | | CONSULT, Starting Sat01/21/19 | | | at 2249, What is the goal INR | | | range for this patient? 2-3 | | + +---+ | | | + +---+ documented in this encounter
--- OUTSIDE RECORDS SUMMARY | ~2019-10-20 | XMS | Encounter Summary ---
Demographics + + + | Address | [address] | | | [place] [address] | + + + | Home Phone | | + + + | Preferred Language | Unknown | + + + | Marital Status | Single | + + + | Spiritism Affiliation | 1028 | + + + | Race | White | + + + | Ethnic Group | Not or | + + + Author + + + | Author | [facility] | | | and [place] | + + + | Organization | [facility] | | | and [...] Team Providers + +------+ + | Care Vaccine Manager Name | Role | Phone | + +------+ + | No, Physician | PCP | Unavailable | + +------+ + Reason for Visit + + + | Reason | Comments | + + + | Cough | | + + + | Sore Throat | | + + + | Fever (9 Weeks To 74 | | | Years) | | + + + | Shortness of Breath | | + + + Encounter Details +--------+ + + + + | Date | Type | Department | Care Team | Description | +--------+ + + + + | 12/23/ | Emergency | [facility] | Gennaro Abdul, | Acute bronchitis, | | 2019 | | [facility] | MD [address] | unspecified organism | | | | CENTER [address] | [place] | (Primary Dx) | | | | [place] | [id number] | | | | | [address] | | | | | | [phone] | | | +--------+ + + + + Social [...] + + + | Blood Pressure | 131/91 | 12/23/2018 4:58 PM | | | | | PDT | | + + + + + | Pulse | 96 | 12/23/2018 6:45 PM | | | | | PDT | | + + + + + | Temperature | 36.2 C (97.1 F) | 12/23/2018 4:58 PM | | | | | PDT | | + + + + + | Respiratory Rate | 20 | 12/23/2018 6:45 PM | | | | | PDT | | + + + + + | Oxygen Saturation | 95% | 12/23/2018 6:45 PM | | | | | PDT | | + + + + + | Inhaled Oxygen | - | - | | | Concentration | | | | + + + + + | Weight | 201 kg (443 lb 2 oz) | 12/23/2018 5:03 PM | | | | | PDT | | + + + + + | Height | - | - | | + + + + + | Body Mass Index | - | - | | + + + + + documented in this encounter Discharge Instructions AttachmentsThe following attachments cannot be sent through Care Everywhere.Bronchitis, Acu te (Russian)documented in this encounter Medications at Time of Discharge + + + +---------+ + + | Medication | Sig | Dispensed | Refills | Start | End Date | | | | | | Date | | + + + +---------+ + + | albuterol 90 | Inhale 2 puffs into | 1 | 0 | 12/23/ | | | mcg/puff inhaler | the [...] + + + +---------+ + + | levoFLOXacin | Take 1 tablet by | 7 | 0 | 12/24/19 | | | (LEVAQUIN) 750 MG | mouth Daily for 7 | tablet | | 19 | 9 | | tablet | days. | | | | | + + + +---------+ + + | methylPREDNISolone | Follow package | 21 | 0 | 12/24/19 | | | (MEDROL DOSEPAK) 4 | directions. | tablet | | 19 | 9 | | mg tablet | | | | | | + + + +---------+ + + | metoprolol | Take 25 mg by mouth | | 0 | | | | tartrate (LOPRESSOR) | 2 times daily. | | | | 9 | | 25 mg tablet | | | | | | + + + +---------+ + + | warfarin | Take 7.5 mg by mouth | | 0 | | | | (COUMADIN) 7.5 mg | Daily. | | | | 9 | | tablet | | | | | | + + + +---------+ + + documented as of this encounter ED Notes Gennaro Abdul MD - 12/23/2018 5:21 PM PDTFormatting of this note might be different fr om the original. Chief Complaint: "I can't stop coughing" HPI: This patient presents to the Emergency Department with coughing, sore throat, fever, a nd difficulty breathing. Patient has a history of asthma and multiple family members are si ck with similar symptoms. The patient has been sick for about 1 to 2 weeks. They are shelby rned that potentially he has pneumonia. The patient has no associated vomiting and denies l eg swelling, chest pain, shortness of breath, or any other symptoms suggestive of acute jack nary syndrome or PE. The patient does admit to wheezing, and having difficulty breathing se condary to what feels like asthma. He also does have a history of asthma and says this feel s typical of his infectious processes in the past. Past Medical and Surgical History I did review the patient's past medical and surgical history. The patient has a past medica l history of DVT (deep venous thrombosis) ([facility]). The patient has no past surgical history on file. Family and Social History I did review the patient's family and social history. The patient's family history is not o n file. The patient reports that he has never smoked. He does not have any smokeless tobacco history on file. He reports that he does not drink alcohol or use drugs. Medications CLAIMS DIRECTOR Home Medications Medication Sig gabapentin (NEURONTIN) 300 mg capsule Take 300 mg by mouth 3 times daily. metoprolol tartrate (LOPRESSOR) 25 mg tablet Take 25 mg by mouth 2 times daily. omeprazole (PRILOSEC) 20 mg capsule Take 20 mg by mouth every morning (before breakfast ). warfarin (COUMADIN) 7.5 mg tablet Take 7.5 mg by mouth Daily. Allergies No Known Allergies Review of Systems Review of Systems Constitutional: Positive for fever. Respiratory: Positive for cough, shortness of breath and wheezing. Gastrointestinal: Negative for abdominal pain, nausea and vomiting. As in history of present illness. A 10 system review was otherwise negative. Physical Examination VITAL SIGNS: Temp: 36.2 C (97.1 F) Pulse: 98 Resp: 18 SpO2: 96 % BP: (!) 131/91 There is no height or weight on file to calculate BMI. Constitutional: male patient, anxious, alert and appropriate, conversant with nurse and sta ff. HEENT: Atraumatic, patient follows me around the room with their eyes, PERRL, Oropharynx sh ows no redness, moist mucus membranes. Neck: Supple with full range of motion. No JVD, lymphadenopathy, or meningismus. Respiratory: Good air movement bilaterally. Slight expiratory wheezes, no rales. Patient's work of breathing is normal. Cardiovascular: Normal S1 S2. No rubs or murmurs Abdomen: Abdominal distention. Soft, nontender. No rebound, guarding, or masses. Bowel t ones normal. No pulsatile masses Back: No CVA tenderness. No midline thoracic or lumbar spinal tenderness. Extremities: Nontender. No edema, no calf asymmetry. Present distal pulses. Skin: Warm, Dry, No obvious rashes. Capillary refill is brisk <3 seconds and shows good per fusion on areas of visible skin. Neurologic: Alert & oriented. Cranial nerves II-XII intact. No focal deficits. Gait is norm al. Speech is normal Psychiatric: Normal mood, affect and judgement. No evidence of suicidal or homicidal ideat ion at this time. Labs Results for orders placed or performed during the hospital encounter of 12/23/18 Strep A DNA probe, NAAT Result Value Ref Range Group A Strep, DNA Negative Negative Influenza A and B RNA, NAAT Result Value Ref Range Influenza A PCR Negative Negative, Test not performed Influenza B PCR Negative Negative, Test not performed Imaging Recent imaging: Xr Chest 2 Vws Result Date: 12/23/2018 EXAM: XR CHEST 2 VIEWS dated 12/23/2018 5:50 PM HISTORY: SOB Comparison: None. TECHNIQUE: F rontal and lateral views of the chest. FINDINGS: The lungs are symmetrically aerated. They are clear. There are no pleural effusions. There is no pneumothorax. The cardiac and medi astinal contours are not enlarged. The visible osseous structures are unremarkable. No radiographic evidence for acute disease in the chest. Dictated and Signed by: Kannan johnson MD Electronically signed: 12/23/2018 6:28 PM Medical Decision Making EMS notes and residential records if applicable/available. Pertinent labs and imaging stud ies were reviewed (see above). Medication and allergy lists reviewed in [facility]. Nursing notes and old records were reviewed if available within [facility]. ER course: 17:21 - Patient care initiated. After introducing myself to the patient, I performed a care ful history and physical examination. This is a 28-year-old male with cough, sore throat, and difficult he breathing. The patien t seems to have a viral process causing reactive airway disease. However the differential d iagnosis is broad and does include other serious infections. We will check a chest x-ray, i nfluenza swab, and a strep screen. 19:00. He is doing well at this time. However, the patient does have evidence of bronchit is. He will benefit from steroids, bronchodilators, and symptom medic management Last Set of Vital Signs: Temp: 36.2 C (97.1 F) Pulse: 96 Resp: 20 SpO2: 95 % BP: (!) 13 Impression 1. Acute bronchitis, unspecified organism Disposition: Discharge home Condition: Stable Follow-up Information [facility]. Specialty: Emergency Medicine Why: If symptoms worsen Contact information: [address] [place] [address] Patient's Medications New Prescriptions ALBUTEROL 90 MCG/PUFF INHALER Inhale 2 puffs into the lungs every 4 hours as needed for Wheezing or Shortness of Breath. Use with spacer device. LEVOFLOXACIN (LEVAQUIN) 750 MG TABLET Take 1 tablet by mouth Daily for 7 days. METHYLPREDNISOLONE (MEDROL DOSEPAK) 4 MG TABLET Follow package directions. Modified Medications No medications on file Discontinued Medications No medications on file Discharge References/Attachments Bronchitis, Acute (Russian) Administrations This Visit albuterol-ipratropium 2.5-0.5 mg/3 mL nebulizer solution 3 mL Admin Date 12/23/2018 Action Given Dose 3 mL Route Nebulization Administered By Payton Parks, SILVER CHASER Gennaro Abdul MD 12/23/18 190 inigAri, RN - 1 4:58 PM PDTPt reports cough, fever, sore throat x 1 week not improving on its own . documented in this enc ounter Plan of Treatment Not on filedocumented as of this encounter Procedures + +--------+ + + + | Procedure Name | Priori | Date/Time | Associated Diagnosis | Comments | | | ty | | | | + +--------+ + + + | XR CHEST 2 VIEWS | STAT | 12/23/2018 | | Results for this | | | | 5:50 PM | | procedure are in the | | | | PDT | | results section. | + +--------+ + + + | INFLUENZA A AND B | Routin | 12/23/2018 | | Results for this | | RNA, NAAT | e | 5:41 PM | | procedure are in the | | | | PDT | | results section. | + +--------+ + + + | STREP A DNA PROBE, | Routin | 12/23/2018 | | Results for this | | NAAT | e | 5:41 PM | | procedure are in the | | | | PDT | | results section. | + +--------+ + + + documented in this encounter Results XR Chest 2 Vws (12/23/2018 5:50 PM PDT) + + | Specimen | + + | | + + + + + | Impressions | Performed At | + + + | No radiographic evidence for acute disease in the chest. | [facility] | | Dictated and Signed by: Kannan Ruggiero MD Electronically signed: | | | 12/23/2018 6:28 PM | | + + + + + + | Narrative | Performed At | + + + | EXAM: XR CHEST 2 VIEWS dated 12/23/2018 5:50 PM HISTORY: SOB | [facility] | | Comparison: None. TECHNIQUE: Frontal and lateral views of the | | | chest. FINDINGS: The lungs are symmetrically aerated. They are | | | clear. There are no pleural effusions. There is no pneumothorax. | | | The cardiac and mediastinal contours are not enlarged. The | | | visible osseous structures are unremarkable. | | + + + + + | Procedure Note | + + | Graham, Rad Results In - 12/23/2018 6:31 PM PDT EXAM: XR CHEST 2 VIEWS dated 12/23/2018 | | 5:50 PMHISTORY: SOBComparison: None.TECHNIQUE: Frontal and lateral views of the | | chest.FINDINGS:The lungs are symmetrically aerated. They are clear. There are no | | pleuraleffusions. There is no pneumothorax. The cardiac and mediastinal contours | | arenot enlarged. The visible osseous structures are unremarkable. IMPRESSION: No | | radiographic evidence for acute disease in the chest. Dictated and Signed by: Kannan Arias | | MD Bahman Electronically signed: 12/23/2018 6:28 PM | | | |FINDINGS: | |The lungs are symmetrically aerated. They are clear. There are no pleural | |effusions. There is no pneumothorax. The cardiac and mediastinal contours are | |not enlarged. The visible osseous structures are unremarkable. | | | |IMPRESSION: | | | |No radiographic evidence for acute disease in the chest. | | | |Dictated and Signed by: Kannan Ruggiero MD | | Electronically signed: 12/23/2018 6:28 PM | + + + +---------+ + + | Performing | Address | City/State/Zipcode | Phone Number | | Organization | | | | + +---------+ + + | [facility] | | | | + +---------+ + + Influenza A and B RNA, NAAT (12/23/2018 5:41 PM PDT) + + + + + + | Component | Value | Ref Range | Performed | Pathologist | | | | | At | Signature | + + + + + + | Influenza A | Negative | Negative, Test | [facility] | | | PCR | | not performed | [facility] | | | | | | MED[facility] | | | | | | [facility] - | | | | | | LABORATORY | | + + + + + + | Influenza B | Negative | Negative, Test | [facility] | | | PCR | | not performed | [facility] | | | | | | MEDICAL | | | | | | CENTER - | | | | | | LABORATORY | | + + + + + + + + | Specimen | + + | Tissue - Specimen | | from throat | | (specimen) | + + + + + + + | Performing | Address | City/State/Zipcode | Phone Number | | Organization | | | | + + + + + | [facility] | [address] | [place] | [phone] | | [facility] | | [address] | | | - LABORATORY | | | | + + + + + Strep A DNA probe, NAAT (12/23/2018 5:41 PM PDT) + + + + + + | Component | Value | Ref Range | Performed | Pathologist | | | | | At | Signature | + + + + + + | Group A | Negative | Negative | [facility] | | | Strep, DNA | | | [facility] | | | | | | MEDICAL | | | | | | CENTER - | | | | | | LABORATORY | | + + + + + + + + | Specimen | + + | Tissue - Specimen | | from throat | | (specimen) | + + + + + + + | Performing | Address | City/State/Zipcode | Phone Number | | Organization | | | | + + + + + | [facility] | [address] | [place] | [phone] | | [facility] | | [address] | | | - LABORATORY | | | | + + + + + documented in this encounter Visit Diagnoses + + | Diagnosis | + + | Acute bronchitis, unspecified organism - Primary | + + documented in this encounter Administered Medications + +--------+ +-------+------+------+ | Medication Order | MAR | Action | Dose | Rate | Site | | | Action | Date | | | | + +--------+ +-------+------+------+ | albuterol-ipratropium 2.5-0.5 | Given | 12/24/19 | 3 mLs | | | | mg/3 mL nebulizer solution 3 mL | | 19 6:43 | | | | | 3 mL, Nebulization, RT Once, Tue | | PM PDT | | | | | 12/23/18 at 1740, For 1 dose | | | | | | + +--------+ +-------+------+------+ +---+---+ | | | +---+---+ documented in this encounter
--- OUTSIDE RECORDS SUMMARY | ~2019-10-20 | XMS | Clinical Summary ---
Demographics + + + | Address | [address] | | | [place] [address] | + + + | Home Phone | | + + + | Preferred Language | Unknown | + + + | Marital Status | Single | + + + | Mosque Affiliation | 1028 | + + + | Race | White | + + + | Ethnic Group | Not or | + + + Author + + + | Author | [facility] | | | and [place] | + + + | Organization | [facility] | | | [...] Team Providers + +------+ + | Care Honing Machine Try Out Setter Name | Role | Phone | + +------+ + | No, Physician | PCP | Unavailable | + +------+ + Allergies No Known Allergies Medications + + + +---------+------+------+-------+ | Medication | Sig | Dispensed | Refills | Star | End | Statu | | | | | | t | Date | s | | | | | | Date | | | + + + +---------+------+------+-------+ | omeprazole | Take 20 mg by mouth | | 0 | | | Activ | | (PRILOSEC) 20 mg | every morning | | | | | e | | capsule | (before breakfast). | | | | | | + + + +---------+------+------+-------+ | gabapentin | Take 300 mg by mouth | | 0 | | | Activ | | (NEURONTIN) 300 mg | Daily. | | | | | e | | capsule | | | | | | | + + + +---------+------+------+-------+ | albuterol 90 | Inhale 2 puffs into | 1 | 0 | 10/2 | | Activ | | mcg/puff inhaler | the lungs every 4 | Inhaler | | 2/20 | | e | | | hours as needed for | | | 19 | | | | | Wheezing or | | | | | | | | Shortness of Breath. | | | | | | | | Use with spacer | | | | | | | | device. | | | | | | + + + +---------+------+------+-------+ | metoprolol | Take 25 mg by mouth | | 0 | | | Activ | | succinate | Daily. | | | | | e | | (TOPROL-XL) 25 mg 24 | | | | | | | | hr tablet | | | | | | | + + + +---------+------+------+-------+ | tocopherol | Apply 1 Application | | 0 | | | Activ | | (VITAMIN E) topical | topically Daily as | | | | | e | | oil | needed for Dry Skin. | | | | | | + + + +---------+------+------+-------+ Active Problems + + + | Problem | Noted Date | + + + | Acute respiratory failure with hypoxia | 01/22/2019 | + + + | Bronchitis | 01/21/2019 | + + + | Influenza B | 01/21/2019 | + + + | Chronic deep vein thrombosis (DVT) of lower extremity | 08/06/2018 | + + + + + | Overview: On warfarin | + + + + + | Bilateral leg pain | 08/06/2018 | + + + | Dependent edema | 08/06/2018 | + + + | Essential hypertension | 08/06/2018 | + + + | Gastroesophageal reflux disease | 08/06/2018 | + + + | Mild intermittent asthma | 08/06/2018 | + + + | Moderate major depression | 08/06/2018 | + + + | Morbid obesity | 08/06/2018 | + + + | Other chronic pain | 08/06/2018 | + + + | Urinary incontinence | 08/06/2018 | + + + | Warfarin anticoagulation | 08/06/2018 | + + + Immunizations + + + + | Name | Administration Dates | Next Due | + + + + | DTP (PED) | 12/16/1997, 03/15/1994, 06/08/1993, | | | | 04/27/1993, 03/02/1993 | | + + + + | HEP A, 2 DOSE | 03/17/2003 | | | (ADULT) | | | + + + + | HEP A, 2 DOSE | 05/20/2003, 03/17/2003, 12/03/2001 | | | (PED/ADOL) | | | + + + + | Hep B (PED/ADOL) 3 | 12/15/1993, 06/08/1993, 04/27/1993 | | | DOSE | | | + + + + | MMR, 2 DOSE | 12/16/1997, 12/15/1993 | | | (PED/ADULT) | | | + + + + | POLIOVIRUS,OPV | 12/16/1997, 06/08/1993, 04/27/1993, | | | (LIVE) | 03/02/1993 | | + + + + | TD PF (2 LF TETANUS) | 05/20/2003, 03/17/2003 | | | (ADOL/ADULT) | | | + + + + | TDAP, (ADOL/ADULT) | 11/20/2005 | | + + + + | VARICELLA, 2 DOSE | 12/16/1997 | | | (VARIVAX) | | | + + + + Social History + [...] on file | | + + + Last Filed Vital Signs + + + [...] | | + + + + + Plan of Treatment + + + + + | Health Maintenance | Due Date | Last | Comments | | | | Done | | + + + + + | Hepatitis C | | | | | Screening | 3 | | | + + + + + | Vaccine: | | | | | Pneumococcal 19-64 | 9 | | | | (1 of 1 - PPSV23) | | | | + + + + + | Vaccine: | | 11/21/19 | | | Dtap/Tdap/Td (7 - | 6 | 06, | | | Td) | | 05/20/19 | | | | | 04, | | | | | 03/17/19 | | | | | 04, | | | | | Addition | | | | | al | | | | | history | | | | | exists | | + + + + + | Adult Annual | | | | | Wellness Visit | 9 | | | + + + + + | Vaccine: Influenza | | | | | (#1) | 0 | | | + + + + + | Med Mgmt: Cr | | 01/23/20 | | | | 0 | 19, | | | | | 01/22/20 | | | | | 19 | | + + + + + | Med Mgmt: eGFR | | 01/23/20 | | | | 0 | 19, | | | | | 01/22/20 | | | | | 19 | | + + + + + | Medication | | 01/23/20 | | | Management | 0 | 19 | | + + + + + Results Not on filefrom Last 3 Months Insurance + +--------+ +--------+ +---------+--------+ | Payer | Benefi | Subscriber | Effect | Phone | Address | Type | | | t Plan | ID | shakir | | | | | | / | | Dates | | | | | | Group | | | | | | + +--------+ +--------+ +---------+--------+ | MEDICARE | MEDICA | [id number] | | [phone] | | Medica | | | RE | | 016-Pr | 5 | | re | | | PART A | | esent | | | | | | AND B | | | | | | + +--------+ +--------+ +---------+--------+ | [place]ID [place] | MEDICA | [id number] | | [phone] | | Medica | | | ID OF | | 016-Pr | 2 | | id | | | [place] | | esent | | | | + +--------+ +--------+ +---------+--------+ + +--------+ +--------+ + + | Guarantor Name | Accoun | Relation to | Date | Phone | Billing Address | | | t Type | Patient | of | | | | | | | | | | + +--------+ +--------+ + + | Jean-Pierre Zambrano | Person | Self [birth year] | [address] | | | al/Fam | | 1990 | [phone] | [place] | | | [place] | | | 5 (Home) | [address] | + +--------+ +--------+ + + Advance Directives + + + + + | Type | Date Recorded | Patient | Explanation | | | | Funeral Director | | + + + + + | Power of | | | | | Sanitary Landfill Operator | | | | + + + + + | Advance | 01/21/2019 | | | | Directive | 6:55 PM | | | + + + + + + + + + + | Code Status | Date | Date | Comments | | | Activated | Inactivated | | + + + + + | Full Code | 01/22/2019 | 01/23/2019 | | | | 1:11 AM | 5:29 PM | | + + + + +
[~2019-10-20 21:11] MED LIST: BACTRIM DS TAB1 EACH PO; METOPROLOL SUCC25 MG PO; NEURONTIN300 MG PO; OMEPRAZOLE20 MG PO; VENTOLIN HFA18 GM INH
[2019-10-20] MEDS ORDERED: METOPROLOL TART25 MG PO (21:28)
[2019-10-20] MEDS ORDERED: GABAPENTIN300 MG PO (21:29)
[2019-10-20] MEDS ORDERED: BAYER CHEWABLE81 MG PO (21:31)
--- NOTE | 2019-10-21 14:36 | EKG ---
[facility] [address] [place] [address] Signed Normal sinus rhythm Low voltage QRS Borderline ECG No previous ECGs available Confirmed by SHAN BEASLEY MD ([id number]) on 10/21/2019 2:36:32 PM Electronically Signed By: SHAN BEASLEY MD 10/21/19 1436 PATIENT NAME: JUAN FONG JOYCE Electrocardiogram DATE OF : [birth year] PHYSICIAN: SHAN BEASLEY MD REPORT #: [id number] REPORT IS CONFIDENTIAL AND NOT TO BE RELEASED WITHOUT AUTHORIZATION
== END 2019-10-21 02:23 | disposition left against medical advice (07) ==
LOC: ED 21:11
DX: R06.02 Shortness of breath (principal); F31.9 Bipolar disorder, unspecified; Z53.21 Procedure and treatment not carried out due to patient leaving prior to being seen by health care provider; Z86.718 Personal history of other venous thrombosis and embolism; Z86.711 Personal history of pulmonary embolism; Z79.899 Other long term (current) drug therapy; Z79.82 Long term (current) use of aspirin
CPT/HCPCS: 71045; 71260; 80053; 83735; 83880; 84484; 85025; 85379; 93005; 93010; 93971; 99285-25

== ENCOUNTER 2020-09-21 13:32 | Emergency (ER) | payer MEDICARE, OTHER ==
[~2020-09-21] VITALS: Ht 182.9 cm; Wt 199.6 kg
[~2020-09-21 13:32] MED LIST changes: +BAYER CHEWABLE81 MG PO; +GABAPENTIN300 MG PO; +METOPROLOL TART25 MG PO
--- OUTSIDE RECORDS SUMMARY | 2020-09-21 13:40 | XMS ---
PreManage Notification: JUAN FONG Security Human Capital Analyst Events 1 event(s) in the past 18 months Most recent security events: Elopement at [facility] 10/20/2019 21:11 - Other Details: PATIENT LEFT AMA. CRITERIA MET - [facility] CARE PROVIDERS CHRISTINE PARKER [facility] Current PHONE: Unknown Donnie has no Care Guidelines for this patient. E.D. VISIT COUNT (12 MO.) 2 Edward Tena 1 Nona Zeng [address] [facility]. TOTAL 5 NOTE: Visits indicate total known visits. ED/UCC VISIT TRACKING (12 MO.) 09/21/2020 13:33 JANINE Kumar TYPE: Emergency COMPLAINT: - CHEST PAIN, CHEST SWELLING 06/18/2020 15:06 Edward LANGLEY TYPE: Emergency COMPLAINT: - URINE PROBLEM 06/15/2020 11:12 Edward LANGLEY TYPE: Emergency COMPLAINT: - URINE PROB 10/21/2019 15:57 Barbieguerita Michelle RIDER TYPE: Emergency COMPLAINT: - LEG PAIN 10/20/2019 21:11 JANINE Kumar TYPE: Emergency COMPLAINT: - FOOT PAIN DIAGNOSES: - Procedure and treatment not carried out due to patient leaving prior to being seen by health care provider - Other director long term care (current) drug therapy - retirement (current) use of aspirin - Bipolar disorder, unspecified - Personal history of other venous thrombosis and embolism - Shortness of breath - Personal history of pulmonary embolism INPATIENT VISIT TRACKING (12 MO.) 10/21/2019 20:36 Barbieguerita Michelle RIDER TYPE: Medical Surgical COMPLAINT: - REDNESS/SWELLING LEFT LEG, ELEVATED D-DIMER DIAGNOSES: 0. Cellulitis of left lower limb 1. Cellulitis of left lower limb 2. Autistic disorder 3. Asperger's syndrome 4. Body mass index [BMI] 60.0-69.9, adult 5. Essential (primary) hypertension 6. Bipolar disorder, unspecified 7. Personal history of other venous thrombosis and embolism 8. Morbid (severe) obesity due to excess calories 9. Gastro-esophageal reflux disease without esophagitis 10. Polyneuropathy, unspecified [email or web address]
[2020-09-21] MEDS ORDERED: HYDROCHLOROTH12.5 M1 PO (14:21)
[2020-09-21] MEDS ORDERED: XARELTO15 MG PO (16:53)
== END 2020-09-21 17:15 | disposition home or self-care (01) ==
LOC: ED 13:32
DX: I80.8 Phlebitis and thrombophlebitis of other sites (principal); E66.9 Obesity, unspecified; J45.909 Unspecified asthma, uncomplicated; E78.00 Pure hypercholesterolemia, unspecified; G47.30 Sleep apnea, unspecified; Z79.899 Other long term (current) drug therapy; Z79.82 Long term (current) use of aspirin
CPT/HCPCS: 76705; 99285-25

== ENCOUNTER 2020-11-04 21:36 | Emergency (ER) | payer MEDICARE, OTHER ==
[~2020-11-04] VITALS: Ht 182.9 cm; Wt 235.9 kg
[~2020-11-04 21:36] MED LIST changes: +HYDROCHLOROTH12.5 M1 PO; +XARELTO15 MG PO
--- OUTSIDE RECORDS SUMMARY | 2020-11-04 21:38 | XMS ---
PreManage Notification: JUAN FONG Security Safety Teacher Events 1 event(s) in the past 18 months Most recent security events: Elopement at [facility] 10/20/2019 21:11 - Other Details: PATIENT LEFT AMA. CRITERIA MET - [facility] CARE PROVIDERS CHRISTINE PARKER [facility] Current PHONE: Unknown Donnie has no Care Guidelines for this patient. E.David VISIT COUNT (12 MO.) 2 Edward Tena 2 [facility]. TOTAL 4 NOTE: Visits indicate total known visits. ED/UCC VISIT TRACKING (12 MO.) 11/04/2020 21:36 JANINE Kumar TYPE: Emergency COMPLAINT: - RT FOOT PAIN 09/21/2020 13:33 JANINE Vega [place] TYPE: Emergency COMPLAINT: - CHEST PAIN, CHEST SWELLING DIAGNOSES: - Phlebitis and thrombophlebitis of other sites - Other residential (current) drug therapy - Obesity, unspecified - Sleep apnea, unspecified - skilled nursing (current) use of aspirin - Unspecified asthma, uncomplicated - Pure hypercholesterolemia, unspecified 06/18/2020 15:06 Ewdard LANGLEY TYPE: Emergency COMPLAINT: - URINE PROBLEM 06/15/2020 11:12 Edward LANGLEY TYPE: Emergency COMPLAINT: - URINE PROB INPATIENT VISIT TRACKING (12 MO.) No inpatient visits to display in this time frame [email or web address]
[2020-11-04] MEDS ORDERED: FUROSEMIDE20 MG PO (21:53)
[2020-11-04] MEDS ORDERED: XARELTO20 MG PO (21:53)
[2020-11-04] MEDS ORDERED: TYLENOL EXTRA500 MG PO (23:24)
== END 2020-11-04 23:59 | disposition home or self-care (01) ==
LOC: ED 21:36
DX: S93.601A Unspecified sprain of right foot, initial encounter (principal); X50.1XXA Overexertion from prolonged static or awkward postures, initial encounter; E66.9 Obesity, unspecified; J45.909 Unspecified asthma, uncomplicated; E78.00 Pure hypercholesterolemia, unspecified; G47.30 Sleep apnea, unspecified; Z79.899 Other long term (current) drug therapy
CPT/HCPCS: 73630; 99283-25

== ENCOUNTER 2020-11-25 22:24 | Inpatient (IN) | payer MEDICARE, OTHER ==
[~2020-11-25] VITALS: Ht 182.9 cm; Wt 227.2 kg
[~2020-11-25 22:24] MED LIST changes: +FUROSEMIDE20 MG PO; +TYLENOL EXTRA500 MG PO; +XARELTO20 MG PO
--- OUTSIDE RECORDS SUMMARY | 2020-11-25 22:30 | XMS ---
PreManage Notification: JUAN [facility] [employer] [employer] Events 1 event(s) in the past 18 months Most recent security events: Elopement at [facility] 10/20/2019 21:11 - Other Details: PATIENT LEFT AMA. CRITERIA MET - [facility] - 2 Visits in 30 Days - [facility] PROVIDERS CHRISTINE PARKER [facility] Current PHONE: Unknown Donnie has no Care Guidelines for this patient. Joshua VISIT COUNT (12 MO.) 2 [facility] NOTE: Visits indicate total known visits. 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 - Unspecified asthma, uncomplicated - Overexertion from prolonged static or awkward postures, initial encounter - Obesity, unspecified - Unspecified sprain of right foot, initial encounter - Sleep apnea, unspecified - Pure hypercholesterolemia, unspecified 09/21/2020 13:33 JANINE Vega [place] TYPE: Emergency COMPLAINT: - CHEST PAIN, CHEST SWELLING DIAGNOSES: - Phlebitis and thrombophlebitis of other sites - Other long-term (current) drug therapy - Obesity, unspecified - Sleep apnea, unspecified - 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
--- NOTE | 2020-11-26 01:52 | NUR ---
pt [facility]IV[facility]LOOR, SCOOTED SELF 3-4PA FROM ED STRETCHER TO HOSPITAL BED. CHUCKS PLACED UNDER LLE, LLE WARM TO THE TOUCH, RED WITH GENERALIZED EDEMA. BLE PEDAL PULSES OBTAINED VIA DOPPLER. VS TAKEN AND CHARTED, WILL MONTITOR. SCHEDULED CARDIAC MED GIVEN, SEE EMAR. LR BOLUS INFUSING, VIA LEFT FOREARM, IV SITE WNL. VANCO INFUSING PER MD ORDERS TO RIGHT UPPER ARM. BOTH IV SITE WNL, FLUSHES EASILY WITH BRISK BLOOD RETURN NOTED. SAP ARCHITECT LUCIO IN ROOM COMPLETING QUICK ADMIT. COUPLE SCATTERED BUMPS NOTED BY pt ON HAND AND WAIST, WILL MONITOR. FRESH WATER PROVIDED, pt DENIES NAUSEA. pt ORIENTED TO ROOM, CALL LIGHT IN REACH.
--- NOTE | 2020-11-26 03:00 | NUR ---
FIRST LR BOLUS COMPLETE, LACTIC ACID REPEAT COLLECTED BY FLOAT KIERSTEN MACHUCA. SECOND LR BOLUS INFUSING PER MD ORDERS TO RIGHT UPPER ARM, BRISK BLOOD RETURN NOTED. pt REPORTS MORE RAISED RED BUMPS SCATTERED ON ABD AND ON RIGHT SHOULDER, AND BEHIND LEFT EAR. pt ALSO REPORTS SWELLING IN FACE, VISUABLE SWELLING NOTED TO LIPS. VS TAKEN AND STABLE, TEMP IMPROVING. AIRWAY PATENT, NO DISTRESS NOTED. DR ELISE MADE AWARE, TELEPHONE ORDER FOR BENADRYL 25MG IV Q6HPRN FOR ITCHING.ORDER READ BACK. MED GIVEN, SEE EMAR. NO FURTHER NEEDS VERBALIZED, CALL LIGHT IN REACH.
--- NOTE | 2020-11-26 04:18 | NUR ---
MOTHER GLORIA CALLED ASKING FOR UPDATE, UPDATE PROVIDED. ALL QUESTIONS ANSWERED.
--- NOTE | 2020-11-26 04:19 | NUR ---
LR MAINTENANCE FLUIDS NOW INFUSING AT 125MLS/HR, IV SITE WNL. pt REPORTS BENADRYL IMPROVED SWELLING AND ITCHINESS, NO FURTHER NEEDS VERBALIZED. CALL LIGHT IN REACH.
--- NOTE | 2020-11-26 06:55 | NUR ---
pt UP TO EDGE OF BED WITH HELP FROM GYRO COMPASS TESTER AND THIS RN, 150 DARK YELLOW URINE COLLECTED. pT VOIDED IN ED PRIOR TO ARRIVAL TO [facility] FLOOR, DISCUSSED WITH GYRO COMPASS TESTER. MESSAGE SENT TO DR ELISE REGARDING UO FOR SHIFT. VSS, pt AFEBRILE AT THIS TIME. NEW CHUCKS UNDER BLE D/T SEROUS/YELLOW DRAINAGE TO RLE. CALL LIGHT IN REACH AND FRESH WATER AT BEDSIDE. pt ON PHONE WITH KITCHEN TO ORDER BREAKFAST.CALL LIGHT IN REACH.
--- NOTE | 2020-11-26 07:15 | NUR ---
dr townsend at rn station, made aware of 150mls total uo this shift along with unmeasured void in ed. md also aware of 4l total in boluses between here and in ed along with maintenance fluids, no new orders received at this time.
--- NOTE | 2020-11-26 07:40 | NUR ---
PT SITTING UP AT TIME OF SHIFT EXCHANGE. DENIES NEEDS OR DISCOMFORTS. BREAKFAST ORDERED, NEEDED ITEMS IN REACH.
--- NOTE | 2020-11-26 09:19 | NUR ---
CALLED MOLD FINISHER TORITO BURCH IN REGARDS TO NEW ORDER FOR PICC LINE CONSULT. AGREES.
--- NOTE | 2020-11-26 09:20 | NUR ---
BLOOD DRAWN FOR LAB THEY ATTEMPTED AND WAS UNABLE TO DRAW.
--- NOTE | 2020-11-26 09:30 | NUR ---
BARIATRIC BED ORDERED FOR PT, CONFIRMATION NUMBER [id number]
--- NOTE | 2020-11-26 09:35 | NUR ---
PT IS UPBEAT AND TALKATIVE. DR ELISE IN TO SEE HIM, PT C/O 05/11 LLE PAIN HE DESCRIBES A BURNING SENSATION. NEW ABX ORDERS RECEIVED, PLAN MOVING FORWARD DISCUSSED WITH PT, HE VERBALIZES UNDERSTANDING. TOLERATES 100% OF MORNING MEAL. BOLUS STILL INFUSING ORDERED EARLIER FOR LOW URINE OUTPUT, HAVING TO RUN A LITTLE SLOWER TO ACCOMODATE ABX INFUSION. PT MOVING SELF IN BED FOR PRESSURE RELIEF, VERBALIZES UNDERSTANDING OF NEED TO DO THIS FREQUENTLY TO PREVENT BREAKDOWN.
--- NOTE | 2020-11-26 10:28 | NUR ---
MED REC COMPLETE
--- NOTE | 2020-11-26 11:20 | NUR ---
PT is working with patient now. Call light is in reach. Water refilled. Patient via BS urnal with minimal assistence with swollen leg. Patient stood and took to steps up to reposition higher in bed, SBA. Patient positioned on left side with pillow between knees to relieve pressure.
--- NOTE | 2020-11-26 12:19 | NUR ---
PT WORKS WITH P/T THEN LUNCH ARRIVES. SITTING UP FOR HIS MEAL AT THIS TIME. BARIATRIC BED IS HERE WILL EXCHANGE AFTER MEAL TIME
--- NOTE | 2020-11-26 14:13 | NUR ---
PATIENT IN BATHROOM. PATIENT TRANSFERED FROM TOILET TO SHOWER CHAIR, SBA. SHOWER GIVEN. KATELYN CARE, SKIN CARE, SHAMPOO DONE. NEW GOWN PROVIDED. BERI BED IN TO REPLACE NORMAL BED, CLEAN SHEETS ON BERI BED. PATIENT TO BED FROM SHOWER, SBA. PATIENT POSITIONED ONTO LEFT SIDE WITH LOTS OF PILLOWS UNDER LEFT SIDE. VITALS AND I&O'S CHARTED. CALL LIGHT IN REACH. NO FURTHER NEEDS AT THIS TIME.
--- NOTE | 2020-11-26 14:45 | NUR ---
PT TOLERATES AMBULATING TO THE BATHROOM. ASSISTED TO SHOWER THEN RETURN TO RESTING IN BARIACTRIC BED, AGREES HE FEELS BETTER.
--- NOTE | 2020-11-26 15:54 | NUR ---
PT RESTING IN BED TALKING ON THE PHONE TO HIS MOTHER ABOUT DECISION TO GET A PICC LINE, HAS MET WITH PICC RN PROCEEDURE DISCUSSED AT LENGTH.
--- NOTE | 2020-11-26 16:32 | NUR ---
ORDERS RECIEVED TO EVALUATE JUAN FOR POSSIBLE PICC INSERTION. AFTER REVIEWING THE CHART AND INTERVIEWING THE PT, NO ABSOLUTE CONTRAINDICATIONS WERE FOUND. RISKS AND COMPLICATIONS OF PICC LINES WERE DISCUSSED BOTH WITH THE PT WELL HIS MOTHER BY TELEPHONE. INFORMED CONSENT WAS SIGNED PRIOR TO THE START OF THE PROCEDURE. THE RIGHT ARM WAS EVALUATED WITH U/S AND THE MAJOR STRUCTURES IDENTIFIED. THE RIGHT BASILIC VEIN IS LARGE ENOUGH TO ACCOMIDATE A 4FR PICC WHICH IS ESTIMATED TO TAKE UP 33% OF THE VEIN AT THE INSERTION SITE. THE RIGHT BASILIC VEIN IS FOUND TO BE 2.5-3CM BELOW THE SURFACE OF THE SKIN AT THE INSERTION SITE. THE RIGHT BASILIC VEIN WAS ACCESSED ON THE FIRST ATTEMPT AND THERE WERE NO DIFFICULTIES ADVANCING THE IV, GUIDEWIRE, INTRODUCER, NOR PICC CATHETER. BRIKS DARK RED NON-PULSATILE BLOOD WAS SEEN FLOWING FROM THE INTRODUCER. BOTH MAGNET TRACKING WELL Appifier 3CG TRACKING WERE USED DURING INSERTION. THE MAGNET TRACKING GAVE INCONSISTANT RESULTS AND THE 3CG NEVER SHOWED P WAVE ENLARGEMENT. A CXR WAS TAKEN AND THE LINE OBVIOUSLY EXTENDS UP THE RIGHT NECK. THE PATIENT ARM WAS MANIPULATED AND THE PICC LINE REPOSITIONED AND A STERILE DRESSING WAS APPLIED. A SECOND CXR WAS TAKEN AND THE TIP OF THE PICC LINE IS SEEN TO DECEND INTO A CENTRAL LOCATION IN THE CHEST. THE PATIENT TOLERATED THIS WELL. STERILE TECHNIQUE WAS MAINTAINED DURING THE ENTIRE PICC INSERTION AND BOTH DRESSING APPLICATIONS. THE PATIENT IS EDUCATED ON CARE OF HIS PICC LINE AND HE UNDERSTANDS THAT HE NEEDS TO COME TO US AT THE HOSPITAL WITH ANY QUESTIONS RELATED TO HIS PICC LINE.
--- NOTE | 2020-11-26 16:55 | NUR ---
PICC LINE CLEARED TO USE BY RADIOLOGY PER MICHAEL ARTEAGA PICC LINE RN
--- NOTE | 2020-11-26 17:52 | NUR ---
PT'S MOTHER IS PRESENT EATING EVENING MEAL WITH HIM. PT UP TO THE CHAIR.
--- NOTE | 2020-11-26 18:35 | NUR ---
Patient's visitor is in the room and refers her to Mom. Call light is in reach. Vitals, I&Os are complete.
--- NOTE | 2020-11-26 19:15 | NUR ---
REPORT RECEIVED FROM DAY SHIFT RN. PT LYING IN BED ALERT AND ORIENTED. FRESH WATER PROVIDED. PT DENIES FURTHER NEEDS. WHITE BOARD UPDATED. CALL LIGHT IN REACH.
--- NOTE | 2020-11-26 19:49 | NUR ---
MILL TENDER ROUNDING NOTE. PT ASSISTED BY PRIMARY RN AND THIS MELT ROOM OPERATOR TO SIT AT EDGE OF BED TO USE URINAL. PT CLIMBED BACK INTO BED. STATES THAT HE CANNOT SIT AND SWING LEGS IN. 2 PERSON SBA. PT TOLERATED WELL. REPORTS SLIGHT SOB AFTER ACTIVITY. RT AT BEDSIDE TO ASSESS PT. VS OBTAINED. PT DENIES FURTHER NEEDS. CALL LIGHT IN REACH.
--- NOTE | 2020-11-26 19:52 | NUR ---
CALL LIGHT ANSWERED. PT UP TO SIDE OF BED TO USE URINAL WITH SBA. BACK TO BED, WESLEY WELL. VS AND I&O COMPLETE. RT IN ROOM FOR BREATHING TX.
--- NOTE | 2020-11-26 20:51 | NUR ---
PT UP TO SIDE OF BED TO VOID 600 ML CLEAR YELLOW URINE. LLE WEEPING SMALL AMOUNT SEROUS DRAINAGE. CLEAN LINEN AND CHUCKS ON BED. PT BACK TO BED, WESLEY WELL.
--- NOTE | 2020-11-26 22:04 | EKG ---
[facility] [address] [place], [place] [address] Signed Sinus tachycardia Cannot rule out Anterior infarct , age undetermined Abnormal ECG When compared with ECG of 20-OCT-2019 21:32, No significant change was found Confirmed by TIANA ELISE DO ([id number]) on 11/26/2020 10:04:10 PM Electronically Signed By: TIANA ELISE DO 11/26/202203 PATIENT NAME: AJITJUAN JOYCE Electrocardiogram DATE OF : [birth year] PHYSICIAN: TIANA ELISE DO REPORT #: [id number] REPORT IS CONFIDENTIAL AND NOT TO BE RELEASED WITHOUT AUTHORIZATION
--- NOTE | 2020-11-26 22:16 | NUR ---
EVENING ASSESSMENT COMPLETE. SCHEDULED MEDS ADMINISTERED PER EMAR. PT REPORTS INTERMITTENT PAIN IN [place] PICC SITE. PICC FLUSHED WITH NS. BRISK BLOOD RETURN NOTED. SITE WNL. WARM PACK PROVIDED. IVF INFUSING WNL. PT UP TO SIDE OF BED WITH SBA TO VOID. BACK TO BED, WESLEY WELL. DRY COUGH NOTED. PT DENIES SOB. LUNGS CLEAR AND DIM THROUGHOUT. SpO2 98%. INCREASED RR WITH ACTIVITY. LLE EDEMA/REDNESS NOTED. SMALL AMOUNT SEROUS DRAINAGE. LLE ELEVATED WITH CLEAN CHUCKS UNDER. PT DENIES QUESTIONS OR CONCERNS. CALL LIGHT IN REACH.
--- NOTE | 2020-11-26 22:45 | NUR ---
CALL LIGHT ANSWERED. IN TO ASSIST PT TO USE URINAL IN BED. PT VOID 800 ML. DENIES FURTHER NEEDS. CALL LIGHT IN REACH.
--- NOTE | 2020-11-27 01:04 | NUR ---
PICC LINE FLUSHED WITH 10 ML NS. BLOOD RETURN NOTED. IV ABX INFUSING ORDERED. PT REPORTS HAVING "COUGHING FITS" THAT ARE PREVENTING HIM FROM SLEEP. ASSISTED PT TO REPOSITION. HOB ELEVATED SpO2 93% ON RA. HR 118. TEMP 99.9. PRN TYLENOL ADMINISTERED FOR TEMP AND REPORTS OF HEADACHE. ASSISTED PT TO USE URINAL. FRESH WATER PROVIDED. RT NOTIFIED PT REQUESTING BREATHING TX.
--- NOTE | 2020-11-27 04:00 | NUR ---
PT UP TO BR WITH SBA TO HAVE BM AND VOID. PT ABLE TO DO OWN KATELYN CARE. TO SINK TO WASH HANDS THEN TO BED. INCREASED RESPIRATIONS WITH ACTIVITY. DRY COUGH NOTED. HOB ELEVATED. NO FURTHER NEEDS AT THIS TIME. CALL LIGHT IN REACH.
--- NOTE | 2020-11-27 06:30 | NUR ---
PT BACK TO BED FROM BR. PT REPORTS NO BM BUT DID VOID AND "PASS A LOT OF GAS". MORNING LABS DRAWN FROM PICC LINE PER PROTOCOL. IVF INFUSING. FRESH WATER PROVIDED. LLE ELVATED IN BED WITH CLEAN CHUCKS UNDER. PT DENIES FURTHER NEEDS. CALL LIGHT IN REACH.
--- NOTE | 2020-11-27 08:04 | NUR ---
Patient awake in bed, alert and oriented. Patient denies sob or pain. No current needs. Personal supplies and call light within reach.
--- NOTE | 2020-11-27 12:28 | NUR ---
WHILE IN ROOM WITH FOR INTAKE YESTURDAY, WHEN ASKED ABOUT HIS LIVING CONDITIONS, PATIENT VERBALIZED THAT HE LIVE IN A HOUSE AND HIS MOTHER AND OTHER RELATIVES AND FRIENDS ARE ALSO STAYING WITH HIM RIGHT NOW, WHEN ASKED IF PATIENT TAKES RECREATIONAL DRUGS OF ANY KIND HE SAID HE DOES NOT, BUT HIS MOTHER AND THE OTHERS LIVING WITH HIM DOES, HE ALSO VERBALIZED CONCERN ABOUT LOOSING HIS HOME DUE TO THE OTHER PEOPLE LIVING THERE. STAFF WILL NOTIFY APPROPRIATE AUTHORITIES SATURDAY, FIELD CROP HARVEST CONTRACTOR KIERSTEN UGARTE NOTIFIED.
--- NOTE | 2020-11-27 12:51 | NUR ---
Tylenol 1000mg po admin for 100.2f temp.
--- NOTE | 2020-11-27 13:10 | NUR ---
REPORT RECEIVED FROM KIERSTEN SALGADO, THIS RN ASSUMING CARE OF PT. PT UP TO CHAIR, FINISHED WITH LUNCH. NO REQUESTS OR COMPLAINTS AT THIS TIME. CALL LIGHT MATT OQUENDO.
--- NOTE | 2020-11-27 14:40 | NUR ---
AFTERNOON ASSESSMENT AND MEDICAITON DUE. THIS RN TO ROOM. PT RESTING IN BED WITH HEAD OF BED ELEVATED TO 45 DEGREES. PT REPORTS ONGOING COUGH ADN REQUESTS "A TEST FOR BRONCHITIS." CONSULTED AND VERBAL ORDERS GIVEN FOR TESSLON PEARLS. ORDER ENTERED. TEMPERATURE REASSESSED, NOW 98.6. PT ALERT AND ORIENTED. PT REPORTS DIFFICULTY BREATHING WITH COUGH. OXGYEN SATURATION 95% ON ROOM AIR. WORK OF BREATHING WNL. LEGS MEASURED BILATERALLY AT 20CM UP FROM HEEL. RLE = 42CM, LLE=60CM. LLE REDDENED TO TOUCH THROUGHOUT ENTIRETY OF LEG. PT REPORTS "IT FEELS LIKE A REALLY BAD SUNBURN." PT REPORTS OCCATIONAL TINGLING IN BLE. LEFT LEG WARM TO TOUCH. PT REPORTS "THE REDNESS IS BETTER." TESSLON ZAIRE GIVEN FOR COUGH. DINNER ORDER PLACED. PT DENIES ADDIITONAL REQUESTS OR COMPLAINTS. FAMILY AT BEDSIDE. CALL LIGHT WITHIN REACH. BED RAILS UP.
--- NOTE | 2020-11-27 15:43 | NUR ---
MEDICATION DUE. THIS RN TO ROOM TO CHECK ON PT. PT MAKING PLAN WITH PT FOR SHOWER. PICC LINE ASSESSED, WNL. BRISK BLOOD RETURN NOTED. VANCO INFUSION STARTED. PT REPORTS SUSAN TAI IS HELPING HIS COUG. PT DENIES ADDITIONAL REQUESTS OR COMPLAINTS. CALL LIGHT PAMELLAHTIN REACH. BED RAILS UP. FAMILY AT [facility].
--- NOTE | 2020-11-27 16:33 | NUR ---
VIEWED EKG, GAVE TO THIS RN TO FILE IN CHART.
--- NOTE | 2020-11-27 17:15 | NUR ---
THIS RN TO ROOM TO CHECK ON PT. PT UP TO SHOWER WITH POKER MACHINE ATTENDANT. NO REQUESTS OR COMPLAINTS. WILL RETURN AFTER SHOWER.
--- NOTE | 2020-11-27 17:35 | EKG ---
[facility] [address] [facility] [place], [place] [address] Signed Sinus tachycardia Low voltage QRS Incomplete right bundle branch block Cannot rule out Anterior infarct (cited on or before 25-NOV-2020) Abnormal ECG When compared with ECG of 25-NOV-2020 22:29, No significant change was found Confirmed by TIANA ELISE DO ([id number]) on 11/27/2020 5:34:50 PM Electronically Signed By: TIANA ELISE DO 11/27/20 1735 PATIENT NAME: JUAN FONG JOYCE Electrocardiogram DATE OF : [birth year] PHYSICIAN: TIANA ELISE DO REPORT #: [id number] REPORT IS CONFIDENTIAL AND NOT TO BE RELEASED WITHOUT AUTHORIZATION
--- NOTE | 2020-11-27 18:18 | NUR ---
PT UP TO CHAIR EATING DINNER, FINISHED WITH SHOWER. PAIN MEDICATION GIVEN PREVIOUSLY BY KIERSTEN GRANT THIS RN WAS OCCUPIED. PT REPORTS IBUPROFEN IS HELPING. PT REPORTS HIS PICC LINE DRESSING IS BOTHERING HIM AND HE WANTS IT REMOVED. EDUCATION DONE WITH PT. PT REPORTS WATER IS UNDER THE DRESSING, NO WATER OBSERVED BY THIS RN. PT STATES A DRESSING CHANGE WOULD HELP. EDUCATION DONE WITH PT REGARDING TIMING OF DRESSING CHANGES AND PT CONTINUES TO STATE A DRESSING CHANGE IS NEEDED NOW. PICC LINE DRESSING CHANGED PER PROTOCOL. 1CM EXPOSED AT INSERTION SITE. CLAVE CHANGED. PICC LINE ASSESSED, BRISK BLOOD RETURN NOTED, VANCO INFUSION RESTARTED AFTER PTS SHOWER. PT REMAINS UP TO CHAIR, EATING DINNER. NO ADDITIONAL REQUESTS OR COMPLAINTS. CALL LIGHT WITHIN REACH.
--- NOTE | 2020-11-27 18:52 | NUR ---
PT HERE FOR SEPSIS, CELLULITUS OF LEFT LEG. PT UP TO CHAIR AND TO SHOWER WITH 1 PERSON ASSIST. PT TOLERATING REGULAR DIET WITH GOOD APPITITE. PT REPORTS COUGH WORSENING THIS SHIFT, TESSLON PEARLS ORDERED. TEMPERATURE OF 100.2 NOTED THIS SHIFT, RESOLVED WITH MD AJAY AWARE, NO NEW ORDERS PLACED. PICC LINE DRESSING CHANGE THIS SHIFT PER PT REQUEST. PICC LINE REMAINS WNL, BRISK BLOOD RETURN NOTED, ABX GIVEN PER MD ORDER. LEGS MEASURED THIS SHIFT, PT REPORTS ERYTHEMA IS IMPROVING TO LEFT LOWER LEG. SWELLING REMAINS PROMINATE ON LEFT LEG COMPARED TO RIGHT. PT VOIDING QUANTITY SUFFICENT. PT USES CALL LIGHT AND MAKES NEEDS KNOWN.
--- NOTE | 2020-11-27 19:02 | NUR ---
PT CALL LIGHT ON, PUMP ALARMING, INFUSION AND FLUSH COMPLETE. PICC LINE ASSESSED, WNL, BRISK BLOOD RETURN NOTED. PICC LINE SALINE LOCKED AT THIS TIME. ALCOHOL CAP APPLIED. PT REMAINS UP TO CHAIR, NO ADDITIONAL REQUESTS OR COMPLAINTS. CALL LIGHT WIHTIN REACH.
--- NOTE | 2020-11-27 19:30 | NUR ---
REPORT RECEIVED FROM DAY SHIFT RN. PT SITTING IN RECLINER ALERT AND ORIENTED. NO NEEDS AT THIS TIME. WHITE BOARD UPDATED. CALL LIGHT IN REACH.
--- NOTE | 2020-11-27 20:15 | NUR ---
PT CALLED REQUESTED BATHROOM. SBA, PT HELD ON TO WALL, SINK, HE WALKED SLOWLY INTO BATHROOM. BED MADE.
--- NOTE | 2020-11-27 20:40 | NUR ---
PT CALLED, WAS DONE IN THE BATHROOM. STATED TO THIS RN HE "FELL ASLEEP" ON THE TOILET. SAYS HE DOES THAT AT HOME WELL. VS COMPLETED, BED DEFLATED SO PT COULD GET INTO, WITH PILLOW SUPPORT, PT IS LAYING ON HIS SIDE, LOOKING AT HIS PHONE. DID COUGH WHILE RN IN ROOM. HIS FOOD PLACED INTO A ZIPLOCKED CLEAN BAG, PLACED IN FRIDGE WITH HIS NAME ON IT, FRESH ICE WATER GIVEN. NO OTHER NEEDS.
--- NOTE | 2020-11-27 21:50 | NUR ---
EVENING ASSESSMENT COMPLETE. PICC LINE FLUSHED AND HEP LOCKED PER PROTOCOL. BRISK BLOOD RETURN NOTED. SITE WNL. STOOL SOFTENER HELD DUE TO REPORTS OF LOOSE STOOL. LLE EDEMA/REDNESS/WARMTH NOTED. LLE ELEVATED WITH CLEAN CHUCKS UNDER, SMALL AMOUNT SEROUS DRAINAGE NOTED. PT REPORTS HE IS COMFORTABLE AT THIS TIME. DENIES QUESTIONS OR CONCERNS. CALL LIGHT IN REACH.
--- NOTE | 2020-11-28 00:34 | NUR ---
PICC LINE PULSATILE FLUSH WITH 10 ML NS. BLOOD RETURN NOTED. IV ABX INFUSING WNL. PT ABLE TO USE URINAL INDEPENDENTLY TO VOID 650 DILUTE URINE.
--- NOTE | 2020-11-28 02:05 | NUR ---
IV ABX COMPLETE. PER PT REQUEST LEFT OVER FOOD WARMED AND PROVIDED. NO FURTHER NEEDS. CALL LIGHT IN REACH.
--- NOTE | 2020-11-28 03:53 | NUR ---
CALL LIGHT ANSWERED. IN TO ASSIST PT TO REPOSITION AND MAKE BED. URINAL EMPTIED. FRESH WATER PROVIDED.
--- NOTE | 2020-11-28 06:04 | NUR ---
MORNING LABS DRAWN THROUGH PICC IN RIGHT UPPER ARM PER PROTOCOL. VS AND I&O COMPLETE. PT STATES "I FEEL PRETTY GOOD THIS MORNING". LLE EDEMA IMPROVED FROM LAST NOC. PT REPORTS BEING ABLE TO MOVE LLE EASIER. NO FURTHER NEEDS. CALL LIGHT IN REACH.
--- NOTE | 2020-11-28 10:26 | NUR ---
Vitals, I&Os are done. Patient via bathroom from chair and then to bed, SBA. Patient is getting up a little too fast to balance properly. Call light is in reach.
--- NOTE | 2020-11-28 11:55 | NUR ---
Patient resting in bed, alert/oriented, no distress. Patient requesting to take a short nap. Fresh water provided. PICC line patent. Patient has no needs. Personal supplies and call light within reach.
--- NOTE | 2020-11-28 15:32 | NUR ---
Patient resting in bed, respirations even and non labored. PICC line hep locked. Patient has no distress or needs. Personal supplies and call light within reach.
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
--- NOTE | 2020-11-28 18:02 | NUR ---
Patient vitals, I&Os are complete. Call light is in reach and patient calls appropiately.
--- NOTE | 2020-11-28 19:58 | NUR ---
REPORT RECEIVED FROM DAY SHIFT RN. PT LYING IN BED ALERT AND ORIENTED. URINAL EMPTIED. FRESH WATER PROVIDED. NO FURTHER NEEDS. WHITE BOARD UPDATED. CALL LIGHT IN REACH.
--- NOTE | 2020-11-28 21:30 | NUR ---
EVENING ASSESSMENT COMPLETE. SCHEDULED MEDS ADMINISTERED PER EMAR. PRN ADMINISTERED FOR COUGH. PRN BREATHING TX ADMINISTERED PER PT REQUEST. PICC HEP LOCKED PER PROTOCOL. BRISK BLOOD RETURN NOTED. LLE EDEMA/WARMTH/REDNESS NOTED. LLE ELEVATED ON BED WITH CLEAN CHUCKS UNDER. URINAL EMPTIED. FRESH WATER PROVIDED. PT DENIES FURTHER NEEDS AT THIS TIME. CALL LIGHT IN REACH.
--- NOTE | 2020-11-28 23:30 | NUR ---
PT UP TO RECLINER CHAIR, INDEPENDENTLY, SEATBED DEFLATED. PT COMPLAIN BED FELT LIKE WAS "DEFLATING" IN BOTTOM AREA. CHECKED ON THE [employer] BARIATRIC BED SYSTEM USER MANUAL, ON LINE, PROBLEM SOLVED. WHEN PT GOES BACK TO BED, WILL ASSESS.
--- NOTE | 2020-11-29 00:30 | NUR ---
PICC LINE PULSATILE FLUSH WITH 10 ML NS. BLOOD RETURN NOTED. IV ABX INFUSING WNL. URINAL EMPTIED. FRESH WATER PROVIDED.
--- NOTE | 2020-11-29 01:15 | NUR ---
PT BACK TO BED, LAYING ON HIS LEFT SIDE, SEATBED INFLATING, MAX INFLATE CONTROL ON. WILL REASSESS IN 10 MIN.
--- NOTE | 2020-11-29 01:25 | NUR ---
CHECKED ON PT. HE STATES SO FAR OK, HOWEVER, DIDN'T FEEL THAT THE SHOULDER AREA HAD INFLATED, BUT HIS BOTTOM AREA IS "OK". PT IS LAYING ON 3 PILLOWS PER HIS CUSTOM WHILE IN THE BED. NO OTHER NEEDS. ALL PERSONAL ITEMS WITHIN REACH.
--- NOTE | 2020-11-29 04:09 | NUR ---
CALL LIGHT ANSWERED. URINAL EMPTIED. PT WITH PERSISTENT COUGH. MODERATE AMOUNT OF MUCUS PRODUCTION. REPORTS "PRESSURE" IN HIS CHEST. WHEEZES HEARD. PT DOES NOT WANT BREATHING TX AT THIS TIME. HOB ELEVATED. PRN FOR PAIN ADMINISTERED FOR REPORTS OF CHEST/LUNG PAIN. FRESH WATER PROVIDED.
--- NOTE | 2020-11-29 06:50 | NUR ---
VS AND I&O COMPLETE. SBA TO RECLINER. GAIT STEADY. PT REPORTS HE FEELS LLE IMPROVING. PT CONTINUES TO COMPLAIN OF PERSISTENT COUGH WITH MODERATE AMOUNT SPUTUM. URINAL EMPTIED. FRESH WATER AND HOT DRINK PROVIDED. CALL LIGHT IN REACH.
--- NOTE | 2020-11-29 08:26 | NUR ---
Patient up and sitting in chair. Helped patient to bathroom and updated white board. Put new heated blanket back onto chair. Patient came back to chair. Patient independent in bathroom. Patient eating breakfast in chair. Call light in reach. No further needs at this time.
--- NOTE | 2020-11-29 08:57 | NUR ---
Patient sitting up in chair eating breakfast, a&ox4. Tessalon pearle 100mg po admin for reports of cough. Patient reports a continued cough with rib pain. PICC line patent, brisk blood return and flushes well. Patient denies further needs. Will continue to monitor.
--- NOTE | 2020-11-29 10:05 | NUR ---
Vanco still running. Will hang levequin once vanco is done. Patient resting in chair.
--- NOTE | 2020-11-29 12:00 | NUR ---
both nares swabbed for covid-19 without complication sample taken to lab.
[2020-11-29] MEDS ORDERED: AUGMENTIN 875-1 EACH PO (12:37)
[2020-11-29] MEDS ORDERED: DOXYCYCLINE HY100 MG PO (12:38)
[2020-11-29] MEDS ORDERED: IBU-200200 MG PO (13:08)
[2020-11-29] MEDS ORDERED: ADULT LOW DOSE81 MG PO (13:08)
== END 2020-11-29 17:40 | disposition home or self-care (01) | DRG 872 ==
LOC: ED 22:24 → MS 22:25
PROVIDERS: ADMIT Student in an Organized Health Care Education/Training Program; ATTEND Student in an Organized Health Care Education/Training Program
PROC: 05HY33Z Insertion of Infusion Device into Upper Vein, Percutaneous Approach (ICD-10-PCS; principal; 2020-11-26 16:00)
DX: A41.9 Sepsis, unspecified organism (principal); L03.116 Cellulitis of left lower limb; Z68.45 Body mass index [BMI] 70 or greater, adult; F84.5 Asperger's syndrome; Z20.822 Contact with and (suspected) exposure to COVID-19; R65.20 Severe sepsis without septic shock; T36.8X5A Adverse effect of other systemic antibiotics, initial encounter; T36.1X5A Adverse effect of cephalosporins and other beta-lactam antibiotics, initial encounter; R22.0 Localized swelling, mass and lump, head; L50.0 Allergic urticaria; I10 Essential (primary) hypertension; E66.01 Morbid (severe) obesity due to excess calories; I89.0 Lymphedema, not elsewhere classified; K21.9 Gastro-esophageal reflux disease without esophagitis; J45.909 Unspecified asthma, uncomplicated; E78.5 Hyperlipidemia, unspecified; G47.30 Sleep apnea, unspecified; F31.9 Bipolar disorder, unspecified; Z86.711 Personal history of pulmonary embolism; Z86.718 Personal history of other venous thrombosis and embolism; Z79.899 Other long term (current) drug therapy; Z79.01 Long term (current) use of anticoagulants
CPT/HCPCS: 36569; 71045; 80048; 80053; 80202; 81001; 83605; 83735; 85025; 87040; 93005; 93010; 93971; 94640; 94760; 97162; 97530; A9270; C1751; C9803; J0692; J1200; J1956; J3370; J7030; J7060; J7121; U0003

== ENCOUNTER 2021-03-19 15:00 | Inpatient (IN) | payer MEDICARE, OTHER ==
[~2021-03-19] VITALS: Ht 182.9 cm; Wt 227.2 kg
[~2021-03-19 15:00] MED LIST changes: +ADULT LOW DOSE81 MG PO; +AUGMENTIN 875-1 EACH PO; +DOXYCYCLINE HY100 MG PO; +IBU-200200 MG PO
--- OUTSIDE RECORDS SUMMARY | 2021-03-19 15:02 | XMS ---
PreManage Notification: JUAN FONG Security Sleep Manager Events 1 event(s) in the past 18 months Most recent security events: Elopement at [facility] 10/20/2019 21:11 - Other Details: PATIENT LEFT AMA. CRITERIA MET - PDMP - 6 ED Visits in 6 Months CARE PROVIDERS CHRISTINE PARKER [facility] Current PHONE: Unknown Donnie has no Care Guidelines for this patient. EVaishnavi VISIT COUNT (12 MO.) 4 [facility] NOTE: Visits indicate total known visits. ED/UCC VISIT TRACKING (12 MO.) 03/19/2021 15:01 JANINE Kumar TYPE: Emergency COMPLAINT: - FLU SYMPTOMS 01/19/2021 13:26 Edward LANGLEY TYPE: Emergency COMPLAINT: - SKIN PROB 01/04/2021 12:13 Edward LANGLEY TYPE: Emergency COMPLAINT: - LEG PROBLEM 11/25/2020 22:24 JANINE Vega [place] TYPE: Emergency COMPLAINT: - LT LEG PAIN 11/04/2020 21:36 JANINE Vega [place] TYPE: Emergency COMPLAINT: - RT FOOT PAIN DIAGNOSES: - Pain in right foot - Other fdc (current) drug therapy - Unspecified asthma, uncomplicated - Overexertion from prolonged static or awkward postures, initial encounter - Obesity, unspecified - Unspecified sprain of right foot, initial encounter - Sleep apnea, unspecified - Pure hypercholesterolemia, unspecified 09/21/2020 13:33 JANINE Vega [place] TYPE: Emergency COMPLAINT: - CHEST PAIN, CHEST SWELLING DIAGNOSES: - Phlebitis and thrombophlebitis of other sites - Other fdc (current) drug therapy - Obesity, unspecified - Sleep apnea, unspecified - longterm (current) use of aspirin - Unspecified asthma, uncomplicated - Pure hypercholesterolemia, unspecified 06/18/2020 15:06 Edward LANGLEY TYPE: Emergency COMPLAINT: - URINE PROBLEM 06/15/2020 11:12 Edward LANGLEY TYPE: Emergency COMPLAINT: - URINE PROB INPATIENT VISIT TRACKING (12 MO.) 11/26/2020 09:23 JANINE Kumar TYPE: Medical Surgical COMPLAINT: - SEPSIS, CELLULITIS DIAGNOSES: - Gastro-esophageal reflux disease without esophagitis - Severe sepsis without septic shock - Severe sepsis without septic shock - Gastro-esophageal reflux disease without esophagitis - Acidosis - Asperger's syndrome - Bipolar disorder, unspecified - Other fdc (current) drug therapy - Hyperlipidemia, unspecified - Asperger's syndrome - Morbid (severe) obesity due to excess calories - Morbid (severe) obesity due to excess calories - Sleep apnea, unspecified - Sleep apnea, unspecified - Adverse effect of other systemic antibiotics, initial encounter - Localized swelling, mass and lump, head - Cellulitis of left lower limb - longterm (current) use of anticoagulants - Essential (primary) hypertension - Adverse effect of cephalosporins and other beta-lactam antibiotics, initial encounter - Cellulitis of left lower limb - Personal history of pulmonary embolism - Unspecified asthma, uncomplicated - Obesity, unspecified - Adverse effect of cephalosporins and other beta-lactam antibiotics, initial encounter - Allergic urticaria - Body mass index [BMI] 70 or greater, adult - Other fdc (current) drug therapy - Allergic urticaria - Body mass index [BMI] 70 or greater, adult - Adverse effect of other systemic antibiotics, initial encounter - Lymphedema, not elsewhere classified - Lymphedema, not elsewhere classified - Hyperlipidemia, unspecified - Localized swelling, mass and lump, head - Bipolar disorder, unspecified - Personal history of other venous thrombosis and embolism - Unspecified asthma, uncomplicated - Personal history of pulmonary embolism - Personal history of other venous thrombosis and embolism - Essential (primary) hypertension - longterm (current) use of anticoagulants - Sepsis, unspecified organism [email or web address]
[2021-03-19] MEDS ORDERED: XARELTO15 MG PO (16:13)
--- NOTE | 2021-03-19 18:48 | NUR ---
REPORT RECIEVED AND PT. ARRIVED VIA STRETCHER. HE IS ALERT, ORIENTED, ON ROOM AIR, AND ABLE TO TRANSFER TO BED WITH SBA. PT. PROVIDED BOXED DINNER AND LEFT RESTING WITH CALL LIGHT IN REACH.
--- NOTE | 2021-03-19 19:30 | NUR ---
IN TO SEE PT. PT REPORTS GENERALIZED PAIN 05/11. PT DENIES ANY POTHER NEEDS AT THIS TIME. CALL LIGHT IN REACH.
--- NOTE | 2021-03-19 20:10 | NUR ---
LACTIC ACID DRAWN IN TWO ATTEMPTS, ONE BY THIS NURSE, ONE BY Sirisha PORTILLO I AND O'S COMPLETED. VSS COMPLETED. NO TOEHR NEEDS AT THIS ITME. CALL LIGHT IN REACH.
--- NOTE | 2021-03-19 20:26 | NUR ---
LAB DRAW COMPLETED AND SENT LACTIC PER ORDER. PATIENT TOLERATED ACTIVITY WELL.
--- NOTE | 2021-03-19 22:45 | NUR ---
IN TO SEE PT. PT TEMP 102.2 AND REPORTS GENREALIZED PAIN /. PRN TYLENOL GIVEN FOR PAIN AND FEVER. ASSESSMENT COMPLETED. PT ALERT AND ORIENTED X 4. LUNGS CLEAR, DIMINISHED IN BASES. PT WITH PRODUCTIVE COUGHT, CLEAR SPUTUM. TEMP [id number] TEMP DECREASED 101.0 AFTER TYLENOL AND COL CLOTH APPLIED TO FOREHEAD. NO OTHER NEEDS AT THIS TIME. CALL LIGHT IN REACH.
--- NOTE | 2021-03-19 23:55 | NUR ---
WENT IN TO THE ROOM TO SCAN THE BLADDER PER PRIMARY RN UJLITO. PATIENT ALREADY VOIDED IN THE URINAL 500ML. EMPTIED THE URINAL. IV PUMP WAS BEEPING ON OCCLUSION. TOLD PATIENT TO KEEP THE ARM STRAIGHT. THIS DIRECTOR OF DIRECT MARKETING PUT PILLOW UNDER HIS RIGHT ARM. PATIENT PROVIDED UNDER ARM DEODORANT PER PATIENT'S REQUEST. CALL LIGHT LOCATED AND PLACED ON HIS HAND DUE TO PATIENT C/O CAN'T FIND IT.
--- NOTE | 2021-03-20 00:57 | NUR ---
IN TO CHECK ON PT. TEMP RECHECK, INCRESED TO 102.6. PT C/O NAUSEA AND COUGH. PRN TESSALON AND PRN ZOFRAN GIVEN PER RODER. ADDITIONAL COOL WASH CLOTHES GIVEN PER ORDER. NO OTHER NEEDS. CALL LIGHT IN REACH.
--- NOTE | 2021-03-20 03:04 | NUR ---
IN TO CHECK ON PT. I AND O'S AND VSS COMPLETED. PT COMPLETED IS X 10 500-100MLS. NO OTHER NEEDS. CALL LIGHT IN REACH.
--- NOTE | 2021-03-20 03:10 | NUR ---
PT TEMP REMIAN ELEVATED AT THIS TIME. CALL TO DR BEASLEY NO ORDER RECIEVED, VORB.
--- NOTE | 2021-03-20 04:59 | NUR ---
IN TO CHECK ON PT TEMP RECHECKED. TEMP DECRESED TO 100.1 ORAL. PT RESTING IN BED WITH EYES CLOSED RR 22. PT DIAPHORETIC AT THIS TIME. COOL WASH PROVIDED. VSS COMPLETED. I AND O'S COMPLETED. NO OTHER NEEDS CALL LIGHT IN REACH.
--- NOTE | 2021-03-20 05:24 | NUR ---
ALERT AND ORIENTED X3. SALINE LOCKED. REG DIET. FEBRILE, MAGENGED WITH PRN MEDICATIONS, COOL WASH CLOTHS. 2 PA. CONT. URINAL AT BEDSIDE.
--- NOTE | 2021-03-20 08:00 | NUR ---
REPORT RECIEVED FROM KIERSTEN MORROW. PT SITTING UP IN CHAIR SLEEPING.
--- NOTE | 2021-03-20 10:07 | NUR ---
PT REMAINS SITTING UP IN CHAIR. HAD A COUGHING SPELL BUT QUICKLY RECOVERED. HAS 2LNC IN PLACE. STATES HE JUST FEELS WORN O;UT TODAY. LEFT LEG REMAINS MORE EDEMATOUS THAN RIGHT. ADVISED TO PUT FOOT OF RECLINER UP , STATES HE WILL AFTER HE FINISHES BREAKFST.
--- NOTE | 2021-03-20 10:51 | NUR ---
PATIENT UP TO BATHROOM AND BACK TO CHAIR, SBA FWW. VITALS AND I&O'S CHARTED. FRESH WATER GIVEN. PATIENT WANTS TO SHOWER TODAY, WILL CHECK BACK IN. CALL LIGHT IN REACH. NO FURTHER NEEDS AT THIS TIME.
--- NOTE | 2021-03-20 14:28 | NUR ---
PT REMAINS DOZING IN CHAIR. CALL LIGHT IN REACH.
--- NOTE | 2021-03-20 14:50 | NUR ---
PT ASSISTED TO USE URINAL AND GET BACK INTO BED. HAD SEVERAL CRAMPS IN HIS LEGS FROM THE MOVEMENT. STATES IT IS NORMAL FOR HIM.
[2021-03-20] MEDS ORDERED: ALBUTEROL2.5 MG/3 M INH (17:48)
[2021-03-20] MEDS ORDERED: XARELTO20 MG PO (17:48)
--- NOTE | 2021-03-20 17:53 | NUR ---
medications reconciled using pharmacy records and patient interview. Rivaroxaban dosed changed to 20mg daily per verbal order Dr Maagllon
--- NOTE | 2021-03-20 19:18 | NUR ---
PATIENT UP TO BATHROOM AND BACK TO BED, SBA FWW. VITALS AND I&O'S CHARTED. FRESH WATER GIVEN. CALL LIGHT IN REACH. NO FURTHER NEEDS AT THIS TIME.
--- NOTE | 2021-03-20 19:30 | NUR ---
IN TO CHECK ON PT. PT IN BED. ROB PERRY IN ROOM WITH PT. PT DENIES PAIN. PT REPORT SOME SOB, REQUESTS FOR NEB. DENIES PAIN. STATES "COUGH IS BETTER, WOULD LIKE SOMTHING FOR COUGH." ALERT AND AWAKE. NO OTHER NEEDS, CALL LIGHT IN REACH.
--- NOTE | 2021-03-20 19:40 | NUR ---
BATHROOM CALL LIGHT ANSWERED. SBA TO THE BED. PATIENT WASHED HANDS. PATIENT HAD EXTRA LARGE SOFT BOWEL MOVEMENT. NO OTHER NEEDS AT THIS MOMENT. CALL LIGHT IN REACH.
--- NOTE | 2021-03-20 21:45 | NUR ---
IN TO CHECK ON PT. VS AND I AND O'S COMPLETED. WARM BLANET AND FRESH WATER PROVIDED. ASSESSMENT COMPLETED. NO SOB NOTED. NIKITA AND BASES DIM AND CLEAR, OTHERWISE CTA. ABX INFUSING. REPORTS GÓMEZ 03/13, PRN TYULENOL GIVEN PER REQUEST. PRN MELATONIN GIVEN PER REQUEST. NO OTHER NEEDS AT THSIT TIME. CALL LIGHT IN REACH.
--- NOTE | 2021-03-20 23:23 | NUR ---
PT SLEEPING WITH EVEN UNLABORED RESPIRATION. NO NEEDS. CALL LIGHT IN REACH.
--- NOTE | 2021-03-21 01:54 | NUR ---
IN TO SEE PT. I AND O'S COPMPLETED. VSS COMPLETED. TEMP 100.2 ORAL. COOL WASH CLOTH, APPLIED TO FOREHEAD. HEAT TURNED DOWN IN ROOM. HEAVY BLANKETS PULED BACK AND PT COVERED WITH SHEET. PT DOING IS 1000MLXS TO 1500MLS. NO OTHER NEEDS, CALL LIGHT IN REACH.
--- NOTE | 2021-03-21 06:34 | NUR ---
IN TO SEE PT. I AND O'S AND VSS COMPLETED. PT AFEBRILE AT THIS ITME. NO SOB NOTED. O2 95% ON 1LNC, O2 DECREASED TO 0.5L. OXYGENATION AT 93-94 ON 0.5LNC. PT DROPPES TO 87-88%. INCREASED O2 TO 0.5LNC AND PT AMINTAINGING 91-92%. PT PERFORMING IS 1700-2000MLS X 10. PT SITTING UP IN CHAIR AT THIS TIME. PT DENIES PAIN, REPORTS DIZZINESS. DIZINESS WORSENS WITH MOVENMENT. PT REPORTS DIZZINESS RESOLVES WHILE SITTING. NO OTHER NEEDS AT THIS ITME. CALL LIGHT IN REACH.
--- NOTE | 2021-03-21 07:02 | NUR ---
IV ABX INFUSING. SCHEDULED MEDICATIONS GIVEN PER ORDER. NO OTHER NEEDS. UP IN CAIR. CALL LIGHT IN REACH.
--- NOTE | 2021-03-21 07:33 | NUR ---
REPORT RECIEVED FROM JULITO OCONNOR RN.
--- NOTE | 2021-03-21 08:09 | NUR ---
PT AWAKE IN THE CHAIR. FRESH ICE WATER GIVEN. WARM BLANKET GIVEN. WHITE BOIARD UDPATED. NO FURTHER NEEDS AT THIS TIME
--- NOTE | 2021-03-21 08:26 | NUR ---
MORNING ASSESSMENT DONE, PATIENT UP TO CHAIR, RATES SOMATIC PAIN 3/10 AND APPEARS COMFORTABLE. MORNING MEDICATIONS GIVEN, PATIENT IS ON 0.5L VIA NC AND HAS A DRY COUGH, LUNGS ARE DIM IN THE BASED. ENCOURAGED PATIENT TO MOVE BACK TO BED AND ELEVATE LEGS, LYMPHADEMA IN LEFT LEG IS VERY PRONOUNCED PATIENT ENDORSES BEING UP IN CHAIR FOR SEVERAL HOURS. PLAN FOR PATIENT TO RETURN TO BED AFTER BREAKFAST. NO OTHER NEEDS NOTED.
--- NOTE | 2021-03-21 10:15 | NUR ---
Pt states he lives at home with is parents and extended family. He has steps into the home and his bedroom is upstairs. He has hand rails, but has difficulty walking up the stairs to his room. He doesn't drive and his mom will transport. He has a cane, walker, and wc. Denies needs to go home. Plans on dc to home today.
[2021-03-21] MEDS ORDERED: AUGMENTIN 875-1 EACH PO (10:19)
== END 2021-03-21 11:20 | disposition home or self-care (01) | DRG 871 ==
LOC: ED 15:00 → MS 17:49
PROVIDERS: ADMIT Internal Medicine; ATTEND Internal Medicine
PROC: 8E0ZXY6 Isolation (ICD-10-PCS; principal; 2021-03-19)
DX: A41.9 Sepsis, unspecified organism (principal); U07.1 COVID-19; L03.116 Cellulitis of left lower limb; Z68.44 Body mass index [BMI] 60.0-69.9, adult; E66.01 Morbid (severe) obesity due to excess calories; I89.0 Lymphedema, not elsewhere classified; F31.9 Bipolar disorder, unspecified; I10 Essential (primary) hypertension; J45.909 Unspecified asthma, uncomplicated; E78.5 Hyperlipidemia, unspecified; G47.33 Obstructive sleep apnea (adult) (pediatric); Z79.01 Long term (current) use of anticoagulants; Z86.718 Personal history of other venous thrombosis and embolism; Z86.711 Personal history of pulmonary embolism; Z88.1 Allergy status to other antibiotic agents; Z79.899 Other long term (current) drug therapy
CPT/HCPCS: 71045; 80048; 80053; 80503; 81001; 83605; 85025; 87040; 94640; 94760; 96365; 96375; 99285-25; A9270; J1170; J2405; J2543; J7121; U0003

== ENCOUNTER 2021-08-03 01:25 | Emergency (ER) | payer MEDICARE, OTHER ==
[~2021-08-03] VITALS: Ht 185.4 cm; Wt 230.0 kg
[~2021-08-03 01:25] MED LIST changes: +ALBUTEROL2.5 MG/3 M INH
[2021-08-03] MEDS ORDERED: CEPHALEXIN500 MG PO (04:54)
[2021-08-03] MEDS ORDERED: BACTRIM DS TAB1 EACH PO (04:54)
== END 2021-08-03 05:41 | disposition home or self-care (01) ==
LOC: ED 01:25
DX: L03.116 Cellulitis of left lower limb (principal); E66.01 Morbid (severe) obesity due to excess calories; Z86.718 Personal history of other venous thrombosis and embolism; Z86.711 Personal history of pulmonary embolism; J45.909 Unspecified asthma, uncomplicated; E78.00 Pure hypercholesterolemia, unspecified; G47.30 Sleep apnea, unspecified; Z88.1 Allergy status to other antibiotic agents; Z79.899 Other long term (current) drug therapy
CPT/HCPCS: 36415; 71045; 80053; 83605; 85025; 85610; 85730; 87502; 93971; 96361; 96365; 96366; 99284-25; A9270; J3370; J7030; J7060; U0003